=== PATIENT | female | born 1990 | race Caucasian/White ===

== ENCOUNTER 2017-06-26 09:00 | Outpatient (RCR) | payer MEDICAID, SELFPAY ==
[2017-06-24 01:39] VITALS: BP 108/66; PULSE 84; RESP 14; TEMP 36.8
--- NOTE | 2017-06-26 11:09 | BH.SGPN ---
Service Group Progress Note - Session Psychotherapy Session #1 Date Open:: 18 - 5 group members Time Started:: 09:03 Time Stopped:: 10:00 Targeted Problem #:: 1 Type of Group:: Process Goal of Group:: The goal of today's group was to check-in with client's mood, stressors, and positives and introduce topic for the day. Client Response/Progress/Benefit:: Client responded well to session, active participant. Client reports feeling anxious today about driving and about returning to work tomorrow after an extended period off. Client shared overall she is starting to notice improvements in her mood and a reduction of symptoms. Client reported she sat through a full day of basketball without freaking out in the crowds which client recognized as progress. Client stated she has been working on communicating her emotions more and using social supports. Client shared I used to want to isolate and not be around people but now I'm getting out. Client appears to be increasing comfort with IOP as evidenced by her report of client telling her parents about the benefits of counseling and encouraged them not to be afraid to speak. Client appeared to benefit from reflecting on the progress she has made with reducing symptoms and generalizing coping skills. Client progressing as evidenced by her report of reduced intensity of symptoms, but continues to endorse rumination and negative thoughts. Eye Contact:: Good Motor Activity:: Appropriate Appearance:: Neat Speech:: Other - circumstantial Mood:: Euthymic Affect:: Congruent Thoughts:: Linear, No evidence of hallucinations/delusions noted Staff Interventions:: Therapist used open-ended questions to elicit information about client's current stressors and mood state. Therapist was supportive by using active listening and reflection. Therapist facilitated a mindfulness activity to promote emotional well-being and calmness.
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
--- NOTE | 2017-06-28 12:39 | BH.SGPN ---
Service Group Progress Note - Session Psychotherapy Session #1 Date Open:: 06/28/17 Time Started:: 09:08 Time Stopped:: 10:16 Targeted Problem #:: 1 Type of Group:: Process - 7 Participants Goal of Group:: The goal of today's group was to check-in with client's mood, stressors, and positives, review homework, and to introduce the topic of the day. Client Response/Progress/Benefit:: Client entered session alert and attentive. Clients hared how she has been feeling like a, negative Jessica but Im feeling a little better today. She reported having spoken with her work about her issues there and stated that he sister said she was indecisive and scatter brained. Client was concerned about this because she reported, my friends and family all say it but I just dont know. Therapist discussed reasons for feeling scatter brained and after discussion client was receptive and understanding. Client identify one positive thing she will do for herself as taking 3 minutes alone for herself. Client benefitted from group in identifying why she may feel indecisive at times. Progress noted in clients ability to speak co-workers and family about how she is feelings. Continued treatment necessary to manage emotional regulation. Eye Contact:: Good Motor Activity:: Appropriate Appearance:: Casual Speech:: Appropriate Mood:: Euthymic Affect:: Full Thoughts:: Linear, Logical, No evidence of hallucinations/delusions noted Staff Interventions:: Therapist used open-ended questions to elicit information about client's current stressors and mood. Therapist was supportive by using active listening and reflection. Psychotherapy Session #2 Date Open:: 06/28/17 Time Started:: 10:20 Time Stopped:: 11:15 Targeted Problem #:: 1 Type of Group:: Illness Management - 7 Participants Goal of Group:: To identify within self what is keeping client trapped from achieving better quality of life. Client Response/Progress/Benefit:: Client was alert and attentive in group AEB nodding in agreement with peers. Client appeared distant throughout group but with encouragement from therapist engaged in communication with peers. Client participated in group discussion with peers about what negative thoughts she feels are keeping her stuck in her current position. Client reported that her self-esteem is causing her to be stuck as well as, feeling sorry for myself, my phobia of driving, wanting a different job, and being stuck in the house. Client identified barriers to from changing these thoughts as, not understanding my anxiety, fear and being scared of it. Client appeared to benefit from gaining awareness on how her thoughts affect her behavior and in turn increase symptoms of anxiety. Progress noted at clients ability to identify thoughts keeping her stuck and identify ways to challenge them. Continued treatment necessary to challenge negative thoughts and decrease anxiety levels. Eye Contact:: Good Motor Activity:: Appropriate Appearance:: Casual Speech:: Appropriate Mood:: Euthymic Affect:: Full Thoughts:: Linear, Logical, No evidence of hallucinations/delusions noted Staff Interventions:: Therapist facilitated discussion about what is keeping clients stuck from moving toward mental wellness. Therapist assisted clients in connecting how thoughts can contribute to keeping clients stuck. Therapist led discussion about barriers clients face from making changes to help one move forward. Therapist provided support by using active listening and giving feedback to others.
--- NOTE | 2017-06-28 14:17 | BH.SGPN_ITS ---
Service Group Progress Note - Session Psychotherapy Session #3 Date Open:: 06/28/17 - 7 group members Time Started:: 11:30 Time Stopped:: 12:20 Targeted Problem #:: 1 Type of Group:: Functional Skills Development Goal of Group:: To identify what client can do to release self from those things that are trapping them to find more peace and quality in everyday life. Client Response/Progress/Benefit:: Client responded well to session, active participant. Client reported negative thinking impacts client?s mood and keeps client from driving, expressing needs, and doing what she enjoys. Client identified a negative thought keeping client stuck to be I can't drive because I'll get in an accident. Client shared this thought is realistic because it's possible but it is unrealistic as client catastrophizes and jumps to conclusions which increases anxiety and reinforces unhelpful coping skills such as avoidance. Client created an alternative thought of I can drive with the help of my supports. Client stated when she challenges her negative thoughts it increases her confidence. Client appeared to benefit from challenging negative thinking and increasing awareness of how thoughts can keep client stuck in an unhelpful maintenance cycle. Client seems to be progressing with utilizing healthy coping skills as shown by her report of using supports. Eye Contact:: Good Motor Activity:: Appropriate Appearance:: Casual Speech:: Tangential Mood:: Anxious Affect:: Full Thoughts:: Linear, No evidence of hallucinations/delusions noted Staff Interventions:: Therapist used examples of maintenance cycles to help clients gain awareness of how negative thinking is keeping clients stuck. Therapist facilitated discussion about different strategies for challenging negative thoughts, assisting clients in connecting how the strategies could benefit them. Therapist provided clients with homework to focus on one thing that is keeping them stuck and identify small steps to start moving towards mental wellness.
--- NOTE | 2017-07-03 09:57 | BH.SGPN ---
Service Group Progress Note - Session Psychotherapy Session #1 Date Open:: 06/06/17 Time Started:: 09:12 Time Stopped:: 10:00 Targeted Problem #:: 1 Type of Group:: Process - 5 participants
--- NOTE | 2017-07-03 11:02 | BH.SGPN ---
Service Group Progress Note - Session Psychotherapy Session #2 Date Open:: 07/03/17 Time Started:: 10:11 Time Stopped:: 11:08 Targeted Problem #:: 1 Type of Group:: Illness Management - 4 participants Psychotherapy Session #3 Date Open:: 07/03/17 Time Started:: 11:16 Time Stopped:: 12:12 Targeted Problem #:: 1 Type of Group:: Functional Skills Development - 4 participants
--- NOTE | 2017-07-03 13:30 | BH.MDN ---
Multi-Disciplinary Note - Note Family Time Started:: 12:15 Date: 07/03/17 Purpose of session/treatment goals addressed:: The purpose of this session was to incorporate client's support system into the treatment process by providing mental health education, addressing concerns, and practicing effective communication. Another goal was to help client and her parents gain awareness of warning signs, healthy coping skills, and realistic expectations for progress. Eye Contact:: Fair, Other - Client seemed to be avoiding eye contact with father as evidenced by her turned away body posture. Motor Activity:: Slowed Appearance:: Casual Speech:: Tangential Mood:: Anxious Affect:: Congruent - Client became tearful while talking about her symptoms and triggers Thoughts:: Linear, No evidence of hallucinations/delusions noted Staff Interventions:: Therapist used open-ended questions to explore client's current stressors, functioning, coping skills, and symptoms. Therapist provided mental health education to client and her parents. Therapist assisted client's supports in identifying helpful and unhelpful strategies to help client cope with mental health. Therapist encouraged the use of open communication and answered questions about the treatment process. Therapist used strengths perspective to empower client and parents and helped the family set realistic expectations. Client Response:: Client open to having a family session with therapist. Client reported she continues to be concerned with her driving anxiety. Client stated, is this going to be how my life is forever? Client was receptive to emotional validation and statement of adjusting expectations given by therapist. Client recognized that her negative thinking exacerbates clients driving anxiety. Client identified coping skills to utilize before and during driving to reduce anxiety such as deep breathing and challenging negative thoughts. Client shared she has seen progress so far in gaining awareness, increasing healthy coping skills, and reducing negative coping skills such as isolation. Client reports this leads client to believe she will continue to progress with driving as well. Client stated she has been feeling increased fatigue which client contributes to medication. Client would like therapist to address this concern with AC. Client brought up concerns with parents such as feeling guilty about asking for help and not being able to do the things she used to be able to do. Client shared it is hard for her to adjust her expectations which consequently increases clients impatience and low self-esteem. Client's mother shared she understands where client is coming from, but wants client to know it is okay to ask for help. Client reported she wants to continue taking small steps, even though she feels impatient at times. Clients mother reported she is proud of client for sticking with the group and not giving up. Clients mother also shared she has seen improvement in clients functioning and mood as well as reduced paranoid thoughts. Client's mother stated her , client's father, does not understand mental health which makes it difficult at times for client to feel supported. The family was receptive to utilizing more effective communication of mental health and support needs as well as focusing on realistic expectations. Clients parents were provided with information on depression and anxiety as well as resources for family to family at [facility]. Client stated she would like to continue with individual outpatient counseling when client discharges from [facility]. Risks/Concerns:: Client denies suicidal ideation, plan, and intent as of 07/03/17. Client reports a positive outlook about getting better which demonstrates future orientation. Client has strong family support. Progress Toward Goals/Plan:: Client appears to be showing progress toward treatment goals as evidenced by client's report of reduced depressive symptoms. Client's mother shared she has seen an improvement in client's mood and overall functioning. Client continues to experience anxiety that impedes client's driving. Client to continue IOP to promote gains, continue learning and implementing healthy coping skills, and promote mood stability. Therapist to follow up with AC regarding client's reports of increased fatigue. Time Stopped:: 13:08
--- NOTE | 2017-07-03 13:33 | BH.MDN_ITS ---
Multi-Disciplinary Note - Note Family Time Started:: 12:15 Date: 07/03/17 Purpose of session/treatment goals addressed:: The purpose of this session was to incorporate client's support system into the treatment process by providing mental health education, addressing concerns, and practicing effective communication. Another goal was to help client and her parents gain awareness of warning signs, healthy coping skills, and realistic expectations for progress. Eye Contact:: Fair, Other - Client seemed to be avoiding eye contact with father as evidenced by her turned away body posture. Motor Activity:: Slowed Appearance:: Casual Speech:: Tangential Mood:: Anxious Affect:: Congruent - Client became tearful while talking about her symptoms and triggers Thoughts:: Linear, No evidence of hallucinations/delusions noted Staff Interventions:: Therapist used open-ended questions to explore client's current stressors, functioning, coping skills, and symptoms. Therapist provided mental health education to client and her parents. Therapist assisted client's supports in identifying helpful and unhelpful strategies to help client cope with mental health. Therapist encouraged the use of open communication and answered questions about the treatment process. Therapist used strengths perspective to empower client and parents and helped the family set realistic expectations. Client Response:: Client open to having a family session with therapist. Client reported she continues to be concerned with her driving anxiety. Client stated, is this going to be how my life is forever? Client was receptive to emotional validation and statement of adjusting expectations given by therapist. Client recognized that her negative thinking exacerbates client?s driving anxiety. Client identified coping skills to utilize before and during driving to reduce anxiety such as deep breathing and challenging negative thoughts. Client shared she has seen progress so far in gaining awareness, increasing healthy coping skills, and reducing negative coping skills such as isolation. Client reports this leads client to believe she will continue to progress with driving as well. Client stated she has been feeling increased fatigue which client contributes to medication. Client would like therapist to address this concern with AC. Client brought up concerns with parents such as feeling guilty about asking for help and not being able to do the things she used to be able to do. Client shared it is hard for her to adjust her expectations which consequently increases client?s impatience and low self-esteem. Client's mother shared she understands where client is coming from, but wants client to know it is okay to ask for help. Client reported she wants to continue taking small steps, even though she feels impatient at times. Client?s mother reported she is proud of client for ?sticking with the group and not giving up.? Client?s mother also shared she has seen improvement in client?s functioning and mood as well as reduced paranoid thoughts. Client's mother stated her , client's father, does not understand mental health which makes it difficult at times for client to feel supported. The family was receptive to utilizing more effective communication of mental health and support needs as well as focusing on realistic expectations. Client?s parents were provided with information on depression and anxiety as well as resources for family to family at [facility]. Client stated she would like to continue with individual outpatient counseling when client discharges from [facility]. Risks/Concerns:: Client denies suicidal ideation, plan, and intent as of . Client reports a positive outlook about getting better which demonstrates future orientation. Client has strong family support. Progress Toward Goals/Plan:: Client appears to be showing progress toward treatment goals as evidenced by client's report of reduced depressive symptoms. Client's mother shared she has seen an improvement in client's mood and overall functioning. Client continues to experience anxiety that impedes client's driving. Client to continue IOP to promote gains, continue learning and implementing healthy coping skills, and promote mood stability. Therapist to follow up with AC regarding client's reports of increased fatigue. Time Stopped:: 13:08
--- NOTE | 2017-07-03 15:02 | BH.SGPN ---
Service Group Progress Note - Session Psychotherapy Session #1 Date Open:: 07/03/17 Time Started:: 09:03 Time Stopped:: 09:55 Targeted Problem #:: 1 Type of Group:: Process Goal of Group:: The goal of today's group was to check-in with client's mood, stressors, and positives, review homework and introduce topic for the day. Client Response/Progress/Benefit:: Client reported yesterday she went to the doctor's and was diagnosed with bronchitis. She expressed some concerns about her medication and perhaps making her more tired but recognizes it could also be her sleep apnea that is the cause. Client initially struggled with being able to share about her weekend because she reported her memory is very bad. After some time client was able to remember she worked over the weekend and it went more smoothly than her first day back. Client shared still having anxiety when she has to work with a certain coworker because the coworker tends to be rude and disrespectful. Client reported feeling excited that she is going to get her hair colored today. Client seemed to benefit from expressing thoughts and feelings as well as support from peers. Client demonstrating progress as evidenced by client opening up to group about her thoughts and feelings as well as starting to utilize her healthy coping skills. Eye Contact:: Fair Motor Activity:: Restless Appearance:: Casual Speech:: Appropriate Mood:: Anxious Affect:: Congruent Thoughts:: Linear, Logical, No evidence of hallucinations/delusions noted Staff Interventions:: Therapist used open-ended questions to elicit information about client's current stressors and mood state. Therapist was supportive by using active listening and reflection.
--- NOTE | 2017-07-08 09:12 | BH.COMM ---
Communication Note - Communication with Client Communication Note: This therapist checked in with this morning as client reported having anxiety regarding driving in the snow. Therapist used a calming voice and reminded client of healthy coping skills to reduce client anxiety. Client reported belief group may help reduce anxiety and refocus. Therapist provided emotional support and encouraged client to make a decision based on her mental health needs.
--- NOTE | 2017-07-08 12:54 | BH.MDN_ITS ---
Multi-Disciplinary Note - Note 30-min Individual Time Started:: 12:12 Date: 07/08/17 Purpose of session/treatment goals addressed:: The purpose of this session was address client's current symptoms and stressors as client appeared withdrawn from group members and was tearful during group. Another goal was to utilize calming coping skills to reduce anxiety to help client drive home safely. Eye Contact:: Avoidant Motor Activity:: Slowed Appearance:: Neat Speech:: Soft Mood:: Dysthymic Affect:: Flat - Client tearful throughout session Thoughts:: Other - Thought blocking, No evidence of hallucinations/delusions noted Staff Interventions:: Therapist used open-ended questions and active listening to explore client's mood, stressors, and functioning. Therapist provided emotional support and validation. Therapist used CBT strategies to help client gain awareness of anxiety leading to avoidance. Therapist reinforced calming coping skills that have helped client in the past and used strengths perspective to reflect on client's progress in IOP so far to empower client. Therapist encouraged client to communicate to supports as client reported this as helpful in the past. Client Response:: Client somewhat hesitant to meet with therapist as client shared I'll be fine. With therapist elicitation, client acknowledged the benefits to reducing anxiety before driving home. Client stated she felt highly anxious this morning as it started snowing and client became fearful that she would get in an accident while driving. Client stated she wanted to leave group right after getting to IOP, but talked herself into staying. Client able to see this as progress. Client became tearful and expressed am I going to be like this forever? Client asked if she could take an additional medication to reduce driving anxiety, therapist will follow up with AC. Client shared she feels guilty for cancelling last week due to weather and reported I should have come it wasn't bad. Client explored the cognitive distortion behind this thought and how it impacted client's mood. 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 Client identified calming coping skills she can utilize before and during driving such as calling a friend, breathing, and using the 5-senses. Client reported she can also focus on the excitement she feels about seeing her children as a coping skills to reduce anxiety while driving today. Client agreed to call her friend for support today to manage depressive symptoms. Client stated she would like talk with her mother more about mental health, but client states her mother ?doesn?t know how to open up. ? Client receptive to expressing these concerns with her mother. Client reported she wants to see more progress with driving which causes client to feel defeated. However, client acknowledged she has made progress in increasing communication and challenging urges to avoid due to anxiety. Client was receptive to learning about avoidance patterns and working on desensitization techniques in future sessions. Risks/Concerns:: Client denies suicidal ideation, plan, and intent as of . Client reported she is looking forward to spending the day with her girls which demonstrates future orientation. Progress Toward Goals/Plan:: Client showing progress toward treatment goals as evidenced by client staying at IOP and meeting with individual therapist today despite reporting high anxiety and depressive symptoms which in the past caused client to isolate and avoid. Client continues to report severe driving anxiety which contributes to client's depressive symptoms and low self-esteem. Client to continue IOP to promote mood stability and to increase coping skills to reduce negative thinking and anxiety. Client to schedule an appointment with outpatient counseling this week. Time Stopped:: 12:34
--- NOTE | 2017-07-08 13:42 | BH.SGPN_ITS ---
Service Group Progress Note - Session Psychotherapy Session #2 Date Open:: 07/08/17 - 5 group members Time Started:: 10:10 Time Stopped:: 11:03 Targeted Problem #:: 1 Type of Group:: Illness Management Goal of Group:: The goal of group was to increase understanding of goals and goal setting and practice a method of goal setting. Client Response/Progress/Benefit:: Client responded well to session, quiet during discussion, but taking on a leadership role in activity. Client reported it is important to set realistic goals to help improve confidence and avoid setting oneself up for failure. Client shared in the activity she became frustrated with herself for messing up, but client reported she challenged her urge to quit and participated anyway. Client appeared to benefit from increasing awareness of goal setting as well as practicing in the moment coping skills. Client progressing as shown by her report of participating in the activity despite having negative thoughts. Client can continue to benefit from challenging cognitive distortions that contribute to low self-esteem. Eye Contact:: Fair Motor Activity:: Slowed Appearance:: Neat Speech:: Appropriate Mood:: Anxious Affect:: Full Thoughts:: Linear, No evidence of hallucinations/delusions noted Staff Interventions:: Therapist facilitated group discussion about goals and goal setting. Therapist taught group the acronym SMART (Specific, Measurable, Achievable, Relevant, Timely) as a tool to help with goal setting. Therapist led the group in an activity to be used as a method of practicing goal setting. Therapist provided the group with a small beach ball and explained their goal was to keep the ball in the air for as long as possible. Therapist guided the group through the SMART acronym as group was participating in activity. Psychotherapy Session #3 Date Open:: 07/08/17 - 5 group members Time Started:: 11:10 Time Stopped:: 12:10 Targeted Problem #:: 1 Type of Group:: Functional Skills Development Goal of Group:: The goal of group was to identify a goal for the week, explore the potential barriers to achieving that set goal, and identify strategies to overcome barriers. Client Response/Progress/Benefit:: Client responded somewhat well to session, withdrawn, but participating when prompted by therapist. Client reported she feels depressed today which is impacting client's communication as client stated , I don't want to share because I don't want to be judged. Client shared she was having a difficult time identifying a goal for the week, so client set a goal for today. Client identified reaching out to one support today as her goal. Client shared this will help reduce depressive symptoms. Client identified her barriers as being a burden and negative thinking. Client shared she can remind herself of past times her supports helped her to overcome barriers. Client appeared to benefit from creating a small, realistic goal to manage depressive symptoms today. Client progressing with communicating instead of withdrawing, but can continue to benefit from utilizing internal coping skills. Eye Contact:: Poor Motor Activity:: Slowed Appearance:: Neat Speech:: Soft Mood:: Dysthymic Affect:: Flat Thoughts:: Linear, No evidence of hallucinations/delusions noted Staff Interventions:: Therapist explained goal setting activity to group. Therapist provided each group member with a piece of paper and asked them to write down a goal they would like to accomplish over the weekend. Therapist then asked each member to draw a path to their goal and identify barriers that could potentially get in the way of their goal. Therapist led group in processing their goal maps and had them come up with strategies to overcome the barriers. Therapist provided support by using reflective listening.
--- NOTE | 2017-07-08 14:24 | BH.SGPN ---
Service Group Progress Note - Session Psychotherapy Session #1 Date Open:: 07/08/17 Time Started:: 09:07 Time Stopped:: 10:01 Targeted Problem #:: 1 Type of Group:: Process - 5 participants
--- NOTE | 2017-07-10 14:12 | BH.SGPN ---
Service Group Progress Note - Session Psychotherapy Session #2 Date Open:: 07/10/17 group members Time Started:: 10:20 Time Stopped:: 11:15 Targeted Problem #:: 1 Type of Group:: Illness Management Goal of Group:: To increase understanding of resilience and identify the factors that contribute to building resilience. Client Response/Progress/Benefit:: Client responded well to session, active participant. Client processed the quote with peers and nodded in agreement that one must be flexible to change in order to manage change effectively. Client helped the group identify factors of resiliency such as hope and optimism and accepting change is a part of life. Client shared she is currently having a hard time coping with her living situation, which is making it hard for client to focus on resiliency. Client received supportive statements from peers and reported she can focus on the positives. Client appeared to benefit from increasing her awareness of the resiliency factors. Client progressing as shown by her increased engagement and communication during group, but can continue to improve communication during times of high anxiety. Eye Contact:: Good Motor Activity:: Appropriate Appearance:: Neat Speech:: Soft Mood:: Anxious Affect:: Congruent Thoughts:: Linear, No evidence of hallucinations/delusions noted Staff Interventions:: Therapist led group in an activity that would induce a chaotic environment and used the activity as a tool in discussing the various stressors people are faced with each day. Therapist facilitated group discussion about resilience and explained the factors of building resilience. Therapist led discussion about factors that contribute to resilience. Therapist provided support by using active listening and providing feedback. Psychotherapy Session #3 Date Open:: 07/10/17 group members Time Started:: 11:21 Time Stopped:: 12:11 Targeted Problem #:: 1 Type of Group:: Functional Skills Development Goal of Group:: To rehearse resilient factors and identify ways to maintain resilience despite hardships and stressors. Client Response/Progress/Benefit:: Client responded somewhat well to session, participating in the activity, but appeared withdrawn during discussion. Client became tearful and declined to participate in discussion. Client wrote personal resiliency factors on her stress ball, identifying coming to IOP as one of her reminders to remain resilient despite hardship. Client appeared to benefit from receiving emotional support from peers and engaging in an activity aimed at increasing resiliency. Client appears to be progressing with gaining awareness of triggers, but continues to struggle with coping with stressors out of her control. Eye Contact:: Poor Motor Activity:: Restless Appearance:: Neat Speech:: Soft Mood:: Anxious, Dysthymic Affect:: Congruent - Client became tearful during session. Thoughts:: Linear, No evidence of hallucinations/delusions noted Staff Interventions:: Therapist led group in an activity in which group members were challenged to stay resilient despite various stressors and hardships added to activity. Therapist provided each group member with a stress ball and used stress ball as a tool to discuss factors of resilient personality. Therapist provided group members with a handout about the building blocks of resilience. Therapist provided support by using reflective listening.
--- NOTE | 2017-07-10 14:14 | BH.MDN ---
Multi-Disciplinary Note - Note 60-min Individual Time Started:: 12:18 Date: 07/10/17 Purpose of session/treatment goals addressed:: The purpose of this session was to discuss aftercare options and schedule outpatient counseling appointments. Another goal was to identify and reframe cognitive distortions. Other topics included goal setting and communication. Eye Contact:: Fair Motor Activity:: Appropriate Appearance:: Neat Speech:: Tangential Mood:: Anxious, Other - reporting frustration Affect:: Congruent Thoughts:: Linear - thoughts linear, client reported feeling tired and having a hard time concentrating., No evidence of hallucinations/delusions noted Staff Interventions:: Therapist used open-ended questions to gather information on clients current symptoms, coping skills, and thoughts on discharge. Therapist advocated for client by assisting client in scheduling outpatient services. Therapist reviewed cognitive distortions with client and helped client challenge negative thought patterns contributing to depression and anxiety. Therapist used motivational interviewing to promote change talk and empower client to set weekly goals to increase communication and problem-solving. Client Response:: Client was open to meeting with therapist. Client stated she became tearful during group today as client received an upsetting text message from her father. Client shared she continues to feel lack of mental health support and communication from her father. Client stated she would like to move out of her parents house and become more independent, but reported belief her father does not think she can handle it. Client was receptive to problem-solving solutions with therapist and agreed to talk with her mother about options. Client reported she continues to feel anxious about driving, but with the help of client's coping skills such as deep breathing and healthy distractions she has been seeing improvement. Client shared her depressed mood has improved as well although client continues to have negative thinking and shuts down at times. Client responded well to a discussion on cognitive distortions and how they can keep client stuck. Client identified a current negative thoughts and practiced reframing it into a more realistic thought. Client and therapist contacted [facility] to schedule an appointment for client to follow up with psychiatry. Client also agreed to contact [facility] to schedule an intake for outpatient counseling. Client reports she feels comfortable with her last day being 07/17/17. Risks/Concerns:: Client denies suicidal ideation, plan, and intent as of 07/10/17. Client reports no current risks or concerns. Progress Toward Goals/Plan:: Client showing progress towards treatment goals as client reports utilizing calming coping skills and success with returning to work. However, client continues to report difficulty communicating with and feeling supported by her father which exacerbates mental health symptoms. Client demonstrating progress with challenging negative thoughts and reducing avoidance behaviors brought on by anxiety as shown by client's increased driving to group. Client to continue IOP to promote gains and reaffirm healthy coping skills. Client to follow up with [facility] to schedule outpatient counseling and to attend an intake appointment at [facility] on 07/18/17 to establish psychiatry. Time Stopped:: 13:13
--- NOTE | 2017-07-10 16:11 | BH.SGPN ---
Service Group Progress Note - Session Psychotherapy Session #1 Date Open:: 07/10/17 Time Started:: 09:09 Time Stopped:: 10:15 Targeted Problem #:: 1 Type of Group:: Process - 10 participants
--- NOTE | 2017-07-11 14:55 | BH.COMM ---
Communication Note - Communication with Client Communication Note: This therapist attempted to contact client to follow up on scheduling for outpatient services. Therapist was unable to reach client and left a message asking for client to return the call.
--- NOTE | 2017-07-16 12:41 | BH.SGPN_ITS ---
Service Group Progress Note - Session Psychotherapy Session #1 Date Open:: 06/28/17 Time Started:: 09:08 Time Stopped:: 10:16 Targeted Problem #:: 1 Type of Group:: Process - 7 Participants Goal of Group:: The goal of today's group was to check-in with client's mood, stressors, and positives, review homework, and to introduce the topic of the day. Client Response/Progress/Benefit:: Client entered session alert and attentive. Clients hared how she has been feeling like a, ?negative Jessica but I?m feeling a little better today.? She reported having spoken with her work about her issues there and stated that he sister said she was indecisive and scatter brained. Client was concerned about this because she reported, ?my friends and family all say it but I just don?t know.? Therapist discussed reasons for feeling scatter brained and after discussion client was receptive and understanding. Client identify one positive thing she will do for herself as taking 3 minutes alone for herself. Client benefitted from group in identifying why she may feel indecisive at times. Progress noted in client?s ability to speak co-workers and family about how she is feelings. Continued treatment necessary to manage emotional regulation. Eye Contact:: Good Motor Activity:: Appropriate Appearance:: Casual Speech:: Appropriate Mood:: Euthymic Affect:: Full Thoughts:: Linear, Logical, No evidence of hallucinations/delusions noted Staff Interventions:: Therapist used open-ended questions to elicit information about client's current stressors and mood. Therapist was supportive by using active listening and reflection. Psychotherapy Session #2 Date Open:: 06/28/17 Time Started:: 10:20 Time Stopped:: 11:15 Targeted Problem #:: 1 Type of Group:: Illness Management - 7 Participants Goal of Group:: To identify within self what is keeping client trapped from achieving better quality of life. Client Response/Progress/Benefit:: Client was alert and attentive in group AEB nodding in agreement with peers. Client appeared distant throughout group but with encouragement from therapist engaged in communication with peers. Client participated in group discussion with peers about what negative thoughts she feels are keeping her stuck in her current position. Client reported that her self-esteem is causing her to be stuck as well as, ?feeling sorry for myself, my phobia of driving, wanting a different job, and being stuck in the house.? Client identified barriers to from changing these thoughts as, ?not understanding my anxiety, fear and being scared of it.? Client appeared to benefit from gaining awareness on how her thoughts affect her behavior and in turn increase symptoms of anxiety. Progress noted at client?s ability to identify thoughts keeping her stuck and identify ways to challenge them. Continued treatment necessary to challenge negative thoughts and decrease anxiety levels. Eye Contact:: Good Motor Activity:: Appropriate Appearance:: Casual Speech:: Appropriate Mood:: Euthymic Affect:: Full Thoughts:: Linear, Logical, No evidence of hallucinations/delusions noted Staff Interventions:: Therapist facilitated discussion about what is keeping client?s stuck from moving toward mental wellness. Therapist assisted clients in connecting how thoughts can contribute to keeping clients stuck. Therapist led discussion about barriers clients face from making changes to help one move forward. Therapist provided support by using active listening and giving feedback to others.
--- NOTE | 2017-07-17 10:41 | BH.AFTERPLAN ---
Aftercare Plan - Demographics Treatment End Date:: 07/17/17 Psychiatrist:: Milvia Moreno Psychiatrist Office #:: [id number] [facility] Therapist:: Maryse Gonsalves Therapist Phone #:: [phone] - Medications Home Medications: Home Medications Ergocalciferol [Vitamin D] 1 tab PO QWEEK 06/01/17 Omeprazole [Omeprazole] 40 mg PO DAILY 06/01/17 Sertraline HCl [Zoloft] 100 mg PO DAILY 06/01/17 Aripiprazole [Abilify] 2 mg PO DAILY 06/21/17 - Plan Details Progress/Aftercare Plan Details:: Client has demonstrated progress with identifying and communicating her emotions more regularly both in IOP and with positive supports. Client shared she is not where she would like to be yet, but she has seen improvement in reduced depressive symptoms. Client reports she has increased awareness of warning signs and healthy coping skills to regulate emotions. Client reports utilizing healthy coping skills such as talking to her supports, challenging negative thoughts, breathing, and setting small goals. Client continues to have driving anxiety, but has been challenging her negative thoughts which is reducing client's avoidant behaviors. Client plans to follow up with outpatient counseling to continue progress with managing anxiety and fear. Strategies for Success:: 1. set small goals! Focus on one thing at a time! 2. Reach out and communicate with supports! Even when you don't feel like it. 3. BREATHE! 4. Take breaks! 5. Know your warning signs and limits! 6. SELF-CARE! You can't pour from an empty cup. 7. Use humor! 8. Challenge negative thoughts would I say this to my daughters? 9. Focus on what you've progressed on so far and give yourself some credit. - Appointments Appointments/Referrals to Other Services:: Client encouraged to follow up with psychiatry at [facility], her appointment is on 07/18/17. Client encouraged to follow up with outpatient counseling at [facility]. Client to call this therapist this week to verify an intake time and date. Client to follow up with primary care physician Izzy Hernadez within the next month for regular medical check-ups.
--- NOTE | 2017-07-17 10:44 | BH.IGGP_ITS ---
Aftercare Plan - Demographics Treatment End Date:: 07/17/17 Psychiatrist:: Milvia Moreno Psychiatrist Office #:: [phone] [facility] Therapist:: Maryse Gonsalves Therapist Phone #:: [phone] - Medications Home Medications: Home Medications Ergocalciferol [Vitamin D] 1 tab PO QWEEK 06/01/17 Omeprazole [Omeprazole] 40 mg PO DAILY 06/01/17 Sertraline HCl [Zoloft] 100 mg PO DAILY 06/01/17 Aripiprazole [Abilify] 2 mg PO DAILY 06/21/17 - Plan Details Progress/Aftercare Plan Details:: Client has demonstrated progress with identifying and communicating her emotions more regularly both in IOP and with positive supports. Client shared she is not where she would like to be yet, but she has seen improvement in reduced depressive symptoms. Client reports she has increased awareness of warning signs and healthy coping skills to regulate emotions. Client reports utilizing healthy coping skills such as talking to her supports, challenging negative thoughts, breathing, and setting small goals. Client continues to have driving anxiety, but has been challenging her negative thoughts which is reducing client's avoidant behaviors. Client plans to follow up with outpatient counseling to continue progress with managing anxiety and fear. Strategies for Success:: 1. set small goals! Focus on one thing at a time! 2. Reach out and communicate with supports! Even when you don't feel like it. 3. BREATHE! 4. Take breaks! 5. Know your warning signs and limits! 6. SELF-CARE! You can't pour from an empty cup. 7. Use humor! 8. Challenge negative thoughts would I say this to my daughters? 9. Focus on what you've progressed on so far and give yourself some credit. - Appointments Appointments/Referrals to Other Services:: Client encouraged to follow up with psychiatry at [facility], her appointment is on 07/18/17. Client encouraged to follow up with outpatient counseling at [facility]. Client to call this therapist this week to verify an intake time and date. Client to follow up with primary care physician Izzy Hernadez within the next month for regular medical check-ups.
--- NOTE | 2017-07-17 10:44 | BH.DS ---
Discharge Summary - Demographics Date of Admission:: 06/06/17 Discharge Date: 07/17/17 Presenting Problems at Admission:: Client is 27-year-old female who at admission presented with a history of depression and anxiety. Client evaluated at [place] [facility] June 01, 2017 for depression and change of mental status. Client endorsed depressive symptoms that client reports have been increasing in severity since summer due to multiple stressors. Client presented with ruminative anxiety that was psychotic in nature which impacted client ability to work, drive, and function at her baseline. Clients mother reported client would often say things that werent real and have paranoid thoughts about everything. At admission client endorsed depressed mood with isolative behavior, anhedonia, decreased energy, thought blocking, and difficulty concentrating. Additionally, client reported having frequent panic attacks while driving. Discharge Diagnoses:: Major depressive disorder with psychotic features F 32.3 Reason for Discharge:: Client has accomplished her [facility] treatment goals as client reports reduced depression and anxiety symptoms as well as increased emotional regulation. Additionally, client plans to return to work without restrictions and no longer meets the criteria for [facility] level of care. - Treatment Progress During Treatment & Response: Client has demonstrated progress with reducing depressive symptoms, anhedonia, and isolative behaviors. At discharge client reported reduced psychosis and paranoid thoughts. Client has been able to return to work and function more regularly at her baseline. Client also has progressed with utilizing healthy coping skills such as thought challenge, deep breathing, and goal setting. Client continued to have high anxiety about driving throughout [facility], but showed progress as client was driving herself to [facility] with reduced panic symptoms in her last few weeks. Client has increased her communication with supports and her willingness talk about mental health issues. Overall, client responded well to group and individual sessions as evidenced by her increased participation and insight. Client had good attendance and was receptive to communicating concerns with individual therapist when in the past client reported I didn't open up well. Issues Still to be Addressed:: Client can benefit from continued work on challenging negative thinking, goal setting, communication, and self-care. Client can also continue to benefit from continued use of healthy coping skills learning in individual and group counseling to improve mood stability and reduce mental health symptoms. Client can benefit from continued communication, psychoeducation, and boundary setting with her father as client reports their relationship is an ongoing stressor. Client reported at discharge she would like to continue to work on reducing anxiety and fear of driving. Client could benefit from desensitization and CBT techniques to reduce anxiety symptoms and increase functioning. Client was encouraged to communicate these concerns with outpatient therapist. Lastly, client can benefit from setting small goals to manage stress and increase self-esteem. Discharge Recommendations/Instructions:: Client was recommended to follow up with outpatient psychiatry and counseling. Client reports plans to go to [facility] for psychiatry, client's appointment is 07/18/17. Client plans to seek outpatient treatment at [facility]. Client unable to schedule a session before leaving [facility], but reports intent to call [facility] this week and follow up with [facility] therapist. Client recommended to follow up with PCP for ongoing medical care and montioring of sleep issues. Discharge Handout: Complete Discharge Handout with client on aftercare options and continuity of care.
--- NOTE | 2017-07-17 14:13 | BH.SGPN ---
Service Group Progress Note - Session Psychotherapy Session #2 Date Open:: 07/17/17 Time Started:: 10:15 Time Stopped:: 11:07 Targeted Problem #:: 1 Type of Group:: Illness Management Goal of Group:: To increase understanding how positive and negative forces in life can impact balance in life. Client Response/Progress/Benefit:: Client listened attentively to others and contributed positively discussion. Client connected with others comments about the importance of putting forth effort to make changes because one is not distended wake up feeling better. During activity client worked cooperatively with others and verbalized her thoughts and ideas when brainstorming what can help the group be successful. When processing activity client recognizes the importance of utilizing supports and having balance was important in helping the group be successful. Connected these same skills can be helpful in everyday life with bouncing both positive and negative forces. Seemed to benefit from increasing awareness of how positive forces can impact progress. Eye Contact:: Good Motor Activity:: Appropriate Appearance:: Casual Speech:: Appropriate Mood:: Euthymic, Anxious Affect:: Congruent Thoughts:: Linear, Logical, No evidence of hallucinations/delusions noted Staff Interventions:: Therapist facilitated group discussion about the various forces of life and helped clients connect the impact they have on balance in life. Therapist led group in an experiential activity in which group members had to work together to balance an object and move it to a designated location. Therapist utilized the activity as a tool to process the challenges connected with balancing various forces.
--- NOTE | 2017-07-17 14:43 | BH.MDN ---
Multi-Disciplinary Note - Note 30-min Individual Time Started:: 11:30 Date: 07/17/17 Purpose of session/treatment goals addressed:: The purpose of this session was to establish an aftercare plan and identify strategies for success moving forward. Another goal was to verify client's outpatient providers and reflect on client progress. Eye Contact:: Fair Motor Activity:: Restless Appearance:: Neat Speech:: Rambling Mood:: Anxious Affect:: Congruent Thoughts:: Racing, No evidence of hallucinations/delusions noted Staff Interventions:: Therapist used open-ended questions to explore client's progress, issues to still be addressed, and strategies for success moving forward. Therapist provided emotional support and validation as client expressed sadness in leaving [facility]. Therapist helped client verify aftercare outpatient services. Therapist used strengths perspective to empower client on progress and promote self-confidence. Client Response:: Client open to meeting with therapist, reporting reluctance to leave the program as client has grown to find [facility] as a safe place. Client reported she is started to get a cold and does not feel well today, which is impacting clients mental health. Client reflected on her progress sharing she has reduced depression and increased awareness of warning signs. Client shared she is not where she wants to be but reported belief she is half way there as client is no longer isolating and being controlled by negative thinking. Client stated she wants to continue to work on managing anxiety and increasing self-esteem. Client shared challenging negative thoughts, taking breaks, and communicating with positive supports have been the most helpful coping skills. Client reported she has gone back to work and is feeling less anxiety which demonstrates progress. Client expressed gratitude towards [facility] staff and the program. Client agrees to follow up with outpatient counseling and psychiatry Risks/Concerns:: Client denies suicidal ideation, plan, and intent as of 07/17/17. Client presents with no current risks or concerns. Progress Toward Goals/Plan:: Client has achieved her treatment goals as client reports reduced depression and anxiety. Client reported having a hard time seeing her progress today as client does not feel well physically and will miss [facility]. Client stated she has seen improvements with her communication, use of healthy coping skills, and challenging negative thoughts. Client to follow up with psychiatry at [facility] and outpatient counseling at [facility]. Client asked therapist to call [facility] to find out earliest available intake dates and to help client schedule. Client to come into IOP to meet with IOP therapist on 07/31/17 for two-week follow up. Time Stopped:: 12:05
--- NOTE | 2017-07-17 14:46 | BH.MDN_ITS ---
Multi-Disciplinary Note - Note 30-min Individual Time Started:: 11:30 Date: 07/17/17 Purpose of session/treatment goals addressed:: The purpose of this session was to establish an aftercare plan and identify strategies for success moving forward. Another goal was to verify client's outpatient providers and reflect on client progress. Eye Contact:: Fair Motor Activity:: Restless Appearance:: Neat Speech:: Rambling Mood:: Anxious Affect:: Congruent Thoughts:: Racing, No evidence of hallucinations/delusions noted Staff Interventions:: Therapist used open-ended questions to explore client's progress, issues to still be addressed, and strategies for success moving forward. Therapist provided emotional support and validation as client expressed sadness in leaving [facility]. Therapist helped client verify aftercare outpatient services. Therapist used strengths perspective to empower client on progress and promote self-confidence. Client Response:: Client open to meeting with therapist, reporting reluctance to leave the program as client has grown to find [facility] as a safe place. Client reported she is started to get a cold and does not feel well today, which is impacting client?s mental health. Client reflected on her progress sharing she has reduced depression and increased awareness of warning signs. Client shared she is not where she wants to be but reported belief she is ?half way there? as client is no longer isolating and being controlled by negative thinking. Client stated she wants to continue to work on managing anxiety and increasing self- esteem. Client shared challenging negative thoughts, taking breaks, and communicating with positive supports have been the most helpful coping skills. Client reported she has gone back to work and is feeling less anxiety which demonstrates progress. Client expressed gratitude towards [facility] staff and the program. Client agrees to follow up with outpatient counseling and psychiatry Risks/Concerns:: Client denies suicidal ideation, plan, and intent as of . Client presents with no current risks or concerns. Progress Toward Goals/Plan:: Client has achieved her treatment goals as client reports reduced depression and anxiety. Client reported having a hard time seeing her progress today as client does not feel well physically and will miss [facility]. Client stated she has seen improvements with her communication, use of healthy coping skills, and challenging negative thoughts. Client to follow up with psychiatry at [facility] and outpatient counseling at [facility]. Client asked therapist to call [facility] to find out earliest available intake dates and to help client schedule. Client to come into [facility] to meet with [facility] therapist on 07/31/17 for two-week follow up. Time Stopped:: 12:05
--- NOTE | 2017-07-17 14:46 | BH.SGPN ---
Service Group Progress Note - Session Psychotherapy Session #1 Date Open:: 18 - 8 group members Time Started:: 09:05 Time Stopped:: 10:00 Targeted Problem #:: 1 Type of Group:: Process Goal of Group:: The goal of today's group was to check-in on client's mood, stressors, and functioning. Client Response/Progress/Benefit:: Client responded well to session, quiet, but participating when prompted by therapist. Client reports feeling tired and sore today as she is sick. However, client stated she feels bittersweet about her daughter starting preschool and today being her last day in IOP. Client shared at the beginning of the program she did not want to open up or look at anyone but by the end client was engaging and utilizing healthy coping skills. Client appeared to benefit from reflecting on her progress throughout IOP as well as gaining supportive statements from others. Eye Contact:: Fair Motor Activity:: Appropriate Appearance:: Neat Speech:: Appropriate Mood:: Anxious, Irritable Affect:: Constricted Thoughts:: Linear, No evidence of hallucinations/delusions noted Staff Interventions:: Therapist facilitated the group session by asking open ended questions that encouraged group members to discuss their coping skills, stressors, barriers, and current mood state
--- NOTE | 2017-07-17 14:49 | BH.SGPN_ITS ---
Service Group Progress Note - Session Psychotherapy Session #1 Date Open:: 18 - 8 group members Time Started:: 09:05 Time Stopped:: 10:00 Targeted Problem #:: 1 Type of Group:: Process Goal of Group:: The goal of today's group was to check-in on client's mood, stressors, and functioning. Client Response/Progress/Benefit:: Client responded well to session, quiet, but participating when prompted by therapist. Client reports feeling ?tired and sore ? today as she is sick. However, client stated she feels ?bittersweet? about her daughter starting preschool and today being her last day in IOP. Client shared at the beginning of the program she did not want to ?open up or look at anyone? but by the end client was engaging and utilizing healthy coping skills. Client appeared to benefit from reflecting on her progress throughout IOP as well as gaining supportive statements from others. Eye Contact:: Fair Motor Activity:: Appropriate Appearance:: Neat Speech:: Appropriate Mood:: Anxious, Irritable Affect:: Constricted Thoughts:: Linear, No evidence of hallucinations/delusions noted Staff Interventions:: Therapist facilitated the group session by asking open ended questions that encouraged group members to discuss their coping skills, stressors, barriers, and current mood state
--- NOTE | 2017-07-17 15:23 | BH.COMM ---
Communication Note - Communication with Client Communication Note: Per client request, this therapist called [facility] to find out earliest available intake dates with an outpatient therapist who could provide services at [place]. Therapist received two potential intake dates 07/24/17 and 07/26/17. Therapist called and left client a message regarding scheduling.
--- NOTE | 2017-07-18 09:10 | BH.COMM ---
Communication Note - Communication with Client Communication Note: This therapist received a call from client regarding follow up with scheduling outpatient counseling. [facility] at 2pm and reported she will contact [facility] today to schedule an intake for outpatient counseling. Client to come to [facility] to meet with therapist on 07/31/17 for a two week follow up.
--- NOTE | 2017-07-18 09:23 | BH.COMM_ITS ---
Communication Note - Communication with Client Communication Note: This therapist received a call from client regarding follow up with scheduling outpatient counseling. Client confirmed [facility] appointment [facility] today at 2pm and reported she will contact [facility] today to schedule an intake for outpatient counseling. Client to come to [facility] to meet with therapist on 07/31/17 for a two week follow up.
--- NOTE | 2017-07-18 09:29 | BH.COMM_ITS ---
Communication Note - Communication with Client Communication Note: Per client request, this therapist called [facility] to find out earliest available intake dates with an outpatient therapist who could provide services at [place]. Therapist received two potential intake dates and 07/26/17. Therapist called and left client a message regarding scheduling.
--- NOTE | 2017-07-24 14:39 | BH.SGPN_ITS ---
Service Group Progress Note - Session Psychotherapy Session #2 Date Open:: 06/26/17 Time Started:: 10:15 Time Stopped:: 11:10 Targeted Problem #:: 1 Type of Group:: Illness Management Goal of Group:: The goal of group was to increase understanding of the benefits social support provides in mental health wellness. Another goal was to increase self-awareness of what qualities the individual group members look for in a person. Eye Contact:: Good Motor Activity:: Appropriate Appearance:: Casual Speech:: Appropriate Mood:: Anxious Affect:: Congruent Thoughts:: Linear, Logical, No evidence of hallucinations/delusions noted Staff Interventions:: Therapist led an experiential activity that demonstrated the need of supports. Processed activity and led discussion about quote. Bryanna rahman led group discussion about importance of social supports. Identified what qualities a positive support person would have. Support was provided through reflective listening and giving feedback. Psychotherapy Session #3 Date Open:: 06/26/17 Time Started:: 11:20 Time Stopped:: 12:20 Targeted Problem #:: 1 Type of Group:: Functional Skills Development Goal of Group:: The goal of group was to increase understanding of the different types of social support. Another goal was to identify one type of support the clients desire and establish one small step towards achieving that support. Eye Contact:: Good Motor Activity:: Appropriate Appearance:: Casual Speech:: Appropriate Mood:: Anxious Affect:: Congruent Thoughts:: Linear, Logical, No evidence of hallucinations/delusions noted Staff Interventions:: Therapist facilitated group discussion on the different types of social support and importance of each type of support. A worksheet titled Plan for Seeking Support was utilized to give clients direction in identifying which type of support they desired and identifying the first small step towards the desired support.
== END 2017-07-17 14:00 | disposition home or self-care (01) ==
LOC: BHIOP 09:00
PROVIDERS: Family Provider Family Medicine; PCP Family Medicine; Visit Provider Psychiatry & Neurology Psychiatry
DX: F32.3 Major depressive disorder, single episode, severe with psychotic features (principal)
CPT/HCPCS: H0035; H2012; H2020; 90832; 90837; 90847

== ENCOUNTER 2019-05-18 09:29 | Day surgery (SDC) | payer MEDICAID, SELFPAY ==
[2019-05-11 17:35] LABS: Hematocrit 35.5 % (37-47); Hemoglobin 10.9 g/dL (12.0-15.0); Mean Corp Hgb Conc 30.7 g/dL (32-36); Mean Corpuscular Hgb 23.6 pg (27.0-32.0); Mean Platelet Vol. 9.6 fl (6.2-12.0); Platelet Count 298 K/mm3 (150-450); RBC Distribution Width CV 14.6 % (11.6-14.6); Red Blood Count 4.61 M/mm3 (4.2-5.4); White Blood Count 6.9 K/mm3 (4.4-11.0)
[2019-05-11 18:01] LABS: Internal QC Validated? YES +Cl - CLEAR BKGD; Pregnancy, Serum, hCG Quali. NEGATIVE Negative
[2019-05-11 18:19] LABS: Prothrombin Time (Protime)PT. 12.9 SECONDS (11.7-14.9)
[2019-05-11 18:24] LABS: Partial Thromboplast Time 29.1 Seconds (24.1-36.2)
--- NOTE | 2019-05-17 22:41 | PCM.HP.BLA ---
History and Physical Date of Admission: 05/18/19 Surgical History and Physical Sandi Conde, a 29 year old female 2 0 0 0 2, presents for L/S bilateral salpingectomy on May 18, 2019 at 11:05. -- Desires Permanent Sterilization -- Sandi presents for permanent sterilization. She has considered this form of control for quite some time. MEDICATIONS HISTORY: Patient is also takin. omeprazole 20 mg capsule,delayed release, One pill by mouth once a day 2. famotidine 40 mg tablet, One pill by mouth twice a day ALLERGIES: NKDA Infections - Chicken pox childhood Illnesses - no serious past illnesses Accidents - no injuries of consequence Hospitalizations - Childbirth Review of Systems: GENERAL - Denies fever, or chills SKIN - Denies skin changes EYES - Denies visual changes EARS - Denies difficulty hearing NOSE - Denies nasal congestion or bleeding MOUTH - Denies sore throat or difficulty swallowing NECK - Denies pain or swelling RESPIRATORY - Denies shortness of breath or wheezing CARDIOVASCULAR - Denies palpitations or chest pain GASTROINTESTINAL - Denies nausea, vomiting, diarrhea, constipation GENITOURINARY - Denies dysuria, frequency of urination, incontinence of urine MUSCULOSKELETAL - Denies joint or muscle pain NEUROLOGICAL - Denies localized numbness or weakness PSYCHIATRIC - Denies depression or anxiety ENDOCRINE - Denies heat or cold intolerance, weight loss or gain HEMATO-IMMUNOLOGIC - Denies excesive bleeding with cuts SOCIAL HISTORY: Alcohol Use - drinks occasionally Smoking - used to smoke but quit Diet - no special diet and caffeine < 2 drinks per day Lifestyle - high stress lifestyle Exercise - minimal Seat Belt Use - always Employer - [employer] 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 Paternal Grandfather: CHF. MENSTRUAL HISTORY: LMP Known?- YesAmount/Duration - 5 days, Regularity - Regular, Frequency - monthly days, LMP - 03/30/19 PAST PREGNANCIES: Total Pregnancies - 2; Full Term Pregnancies - 2; Premature - 0; Abortions, Induced - 0; Abortions, Spontaneous - 0; Ectopics - 0; Multiple Births - 0; Living Children - 2 SURGICAL HISTORY: 1. none PHYSICAL EXAM BP- 130/84 Sitting, Right arm, regular cuff Weight- 162.62944 lbs Height- 65.25 inch BMI:26.81 CONSTITUTIONAL - NAD, well nourished, and well developed SKIN - No rash, lesions, or ulcers HEENT - Normocephalic, PERRLA, EOMI NECK - No nodes, no nuchal rigidity and thyroid normal size and texture LYMPH NODES - Palpation of lymph nodes in neck and groins within normal limits LUNGS - CTA x2 without wheezes, crackles or rales CARDIAC - Regular rate and rhythm without rubs, murmurs, or gallops BREAST - No dominant masses, no tenderness, no axillary adenopathy, no nipple discharge, no skin changes ABDOMEN - Without hepatosplenomegaly, distention, masses, rebound, or guarding; normal bowel sounds; no hernias EXTREMITIES - No edema or calf tenderness NEUROLOGICAL - Cranial nerves II-XII grossly intact PSYCHIATRIC - A and O to time, place, person, mood and affect DETAILED PELVIC EXAM External Genitial Vagina - non-tender without lesions Urethra/Urethral Meatus - non-tender Bladder - non-tender Vagina - vaginal pradhan are pink and moist without loss of rugae and no evidence of atropy Cervix - without cervical motion tenderness and has normal size and features without evident lesions Uterus - multiparous size 6 cm & wt 75-125 g Adnexa - clear without massess or tenderness ASSESSMENT/PLAN: 1. Encounter For Sterilization Discussed options at length including LARC vs tubal in OR. Plan to proceed with L/S Bilateral Salpingectomy. Discussed RBAs and all questions answered.
[2019-05-18 10:06] VITALS: BP 114/71; PULSE 73; RESP 14; TEMP 36.4; O2SAT 100; BMI 27.2
[2019-05-18 10:08] LABS: Internal QC Validated? YES +Cl - CLEAR BKGD; Pregnancy, Urine Negative Negative
[2019-05-18] MEDS: Lactated Ringers 1,000 ML 100 ML IV (10:21)
--- NOTE | 2019-05-18 11:05 | FALS_PTH ---
PATIENT: LEÓN BRADY [place] [facility] [place][id number] AGE/SX: 29/F ROOM: RE05/18/[address]: Dr. Fabian Shabazz MD : [id number] BED: DIS: 05/18/2019 SPEC #: [id number] RECD: 05/18/19 16:13 STATUS: JEREMY PRATIK #: [id number] NIKKI: 05/18/19 11:[address]: Fabian Shabazz DEPT: SURGICAL PATHOLOGY RECD BY: Sammie Frey ENTERED: 05/19/19 10:59 SP TYPE: FALL TUBES OTHR DR: Patit Hernadez PA-C Tissues: Fallopian tube Procedures: Surgery Specimen Level II HEADER OPERATION: Laparoscopic, salpingectomy PRE-OP DIAGNOSIS: Encounter for sterilization TISSUE SUBMITTED: Bilateral fallopian tubes MICROSCOPIC DIAGNOSIS Bilateral fallopian tubes, salpingectomy: Bilateral fallopian tubes including fimbrial ends, no pathologic diagnosis. SJ:karina 05/20/19 MICROSCOPIC DESCRIPTION Slides are reviewed. GROSS DESCRIPTION Received is one container labeled with the patient's name and designated bilateral fallopian tubes. The specimen consists of two fallopian tubes with an average length of 4.5 cm and has an average diameter of 0.5 cm. Both fallopian tubes have normal fimbriated ends. No mass lesions are identified. Ad Writer sections are submitted in two cassettes as follows: 1 - one fallopian tube, 2 - the other fallopian tube. / AM:karina 05/19/19 TC:4 CPT: 50985 x2
[2019-05-18] MEDS: Ropivacaine 0.5% 30 ML Vial (13:28)
--- NOTE | 2019-05-18 13:29 | PCM.OPRPT ---
Report of Operation Date of Procedure: 05/18/19 Pre-Operative Diagnosis: Desires Permanent Sterilization Post-Operative Diagnosis: Desires Permanent Sterilization Surgery/Procedure Performed:: Laparoscopic Bilateral Salpingectomy Description of Surgical Findings:: Normal pelvis Type of Anesthesia:: General - Endotracheal Anesthesiologist: Rigo Yo Specimen's removed: Bilateral fallopian tubes Estimated Blood Loss (mL): Minimal Fluids Replaced: Crystalloid Description of Procedure: Surgeon: Fabian Shabazz MD, FACOG Indications: This is a 29 year old patient who has the above diagnosis. She has considered sterilization for quite some time. She is aware of the permanent nature of the procedure, the failure rate of 1-2%, and the availability of other nonpermanent control options. All questions were answered to consider the patient well-informed. Procedure: The patient was taken to the operating room where after induction of general anesthesia, she was placed in the dorsolithotomy position and prepped and draped in the usual sterile fashion. The bladder was drained of approximately 50 cc of clear yellow urine with a catheter. Anterior cervix was grasped with the tenaculum. Conn cannula was placed and attention was turned toward the laparoscopic portion of the procedure. Approximately 29 cc of half percent ropivacaine was injected subumbilically, suprapubically and midway between. A 5 mm bladeless trocar was placed subumbilically and intraperitoneal placement confirmed. After CO2 insufflation was complete, a 5 mm bladeless trocar was introduced suprapubically. The above findings were noted. A 5 mm blade less trocar was introduced midway between these 2 ports. Each fallopian tube was identified to its fimbriated end and an Enseal device was used to divide the mesosalpinx to the uterus on each side. Fallopian tubes were removed through the 5 mm ports. The peritoneal cavity and upper abdomen were examined and noted to be normal. Photographs were taken. Laparoscopic instruments with as much CO2 gas as possible were removed and incisions were closed with interrupted 4-0 Monocryl suture. Steri-Strips placed across the incision. Vaginal instruments were removed. Patient tolerated procedure well was taken to recovery room in satisfactory condition sponge instrument and needle counts were all reportedly correct. Estimated blood loss for the case was minimal. There were no apparent complications of the surgery. Cefotan 2 g IV was given prior to beginning the operative procedure. Specimens to pathology was bilateral tubes. Grafts/Implants Used: None - Complications None - Admit VTE Documentation VTE Present on Admission: Yes VTE Mechan Device Prophylaxis: SCD's
--- NOTE | 2019-05-18 13:40 | DCINST_ITS ---
Discharge Diet: No Restrictions - Increase fluid intake for the next 48 hours. Discharge Activity: Return to Normal Activity, May Drive - when you are no longer taking pain/narcotic medicines., May Shower, May Take a Tub Bath May resume sexual activity in: 2 weeks Additional Activity Instructions:: Ambulate often the next week after surgery. Nothing in the vagina for 5 days. Call your doctor if your incision/area has: Continuous Slow Oozing, Sudden Increased Bleeding, Increased Pain/ Swelling, Increased Redness, Foul Smelling Discharge Call your doctor if you observe: Fever of 101 or Higher, Inability to urinate, Inability to have a bowel movement, Using more than one pad per hour Allergies/Adverse Reactions: Allergies amoxicillin [From Augmentin] Allergy (Verified 05/11/19 14:06) Nausea/Vom/Diarrhea clavulanic acid [From Augmentin] Allergy (Verified 05/11/19 14:06) Nausea/Vom/Diarrhea Medications to take at Discharge Ergocalciferol [Vitamin D] 1 tab PO QWEEK 06/01/17 Omeprazole 20 mg PO DAILY 06/01/17 Famotidine [Pepcid] 40 mg PO DAILY 05/11/19 Oxycodone [Oxyir] 5 mg PO Q6H PRN PRN 7 Days #10 tablet 05/18/19 The following prescriptions were given: Oxycodone [Oxyir] 5 mg PO Q6H PRN PRN 7 Days #10 tablet PRN Reason: Pain Score 6-10/10 Transmission Status: Received by [id number] Primary Care Physician: Patti Hernadez PA-C [Primary Care Provider] - Test Results: Test results from this visit will be discussed in further detail at your follow- up appointment, if applicable. Please Follow Up With: Fabian Shabazz MD - [phone] When: 2 to 3 weeks
[2019-05-18 13:50] VITALS: BP 106/61; BP 114/71; PULSE 75; RESP 16; TEMP 36.3; O2SAT 95
[2019-05-18 14:01] VITALS: BP 104/65; BP 114/71; PULSE 79; RESP 16; O2SAT 98
[2019-05-18 14:15] VITALS: BP 102/73; BP 114/71; PULSE 72; RESP 16; O2SAT 98
[2019-05-18 14:18] VITALS: BP 114/71; BP 99/69; PULSE 100; RESP 16; TEMP 36.7; O2SAT 99
[2019-05-18 15:07] VITALS: BP 107/64; BP 114/71; PULSE 66; RESP 18; TEMP 36.9; O2SAT 99
== END 2019-05-18 15:12 | disposition home or self-care (01) ==
LOC: SDC 09:30 → AC 09:30
PROVIDERS: Anesthesiology; Family Provider Family Medicine; PCP Family Medicine; Referring Provider Obstetrics & Gynecology; Visit Provider Obstetrics & Gynecology
PROC: (CPT 58661; principal; 2019-05-18 10:50)
DX: Z30.2 Encounter for sterilization (principal); Z87.891 Personal history of nicotine dependence
CPT/HCPCS: 00840; 58661; 36415; 81025; 84703; 85027; 85610; 85730; 86850; 86900; 86901; 88302; J7120; J2405

== ENCOUNTER → 2025-03-26 | Outpatient (CLI) | payer MEDICAID, SELFPAY ==
--- OUTSIDE RECORDS SUMMARY | 2025-03-26 19:28 | XMS RPT_ITS | CCD ---
Author Organization [facility] Care Team Providers Care Program Management Manager Name Role Phone YRN ESPINAL Primary Care Unavailable VERO LOPEZ, THANH Attending Unavailable VERO LOPEZ, THANH Consulting Unavailable VERO LOPEZ, THANH Admitting Unavailable Stedman ERIN, Yrn Ozuna Primary Care Provider Stedman, Yrn Primary Care Unavailable Stedman, Yrn Referring Unavailable [place], Barry Attending Unavailable [facility], Bernardo Attending Unavailable Stedman, Yrn Primary Care Unavailable AMHERST, YRN Admitting Unavailable AMHERST, YRN Attending Unavailable AMHERST, YRN Consulting Unavailable AMHERST, YRN Primary Care Unavailable PROVIDER, UNKNOWN Consulting Unavailable AMHERST, YRN Attending Unavailable AMHERST, YRN Consulting Unavailable AMHERST, YRN Primary Care Unavailable AMHERST, YRN Admitting Unavailable PROVIDER, UNKNOWN Consulting Unavailable AMHERST, YRN Admitting Unavailable AMHERST, YRN Consulting Unavailable AMHERST, YRN Attending Unavailable AMHERST, YRN Primary Care Unavailable PROVIDER, UNKNOWN Consulting Unavailable AMHERST, YRN Attending Unavailable AMHERST, YRN Consulting Unavailable AMHERST, YRN Primary Care Unavailable AMHERST, YRN Admitting Unavailable PROVIDER, UNKNOWN Consulting Unavailable AMHERST, YRN Admitting Unavailable AMHERST, YRN Attending Unavailable AMHERST, YRN Consulting Unavailable AMHERST, YRN Primary Care Unavailable PROVIDER, UNKNOWN Consulting Unavailable SHANE RUBIO MD Admitting Unavailable AMHERST, YRN Referring Unavailable AMHERST, YRN Consulting Unavailable SHANE RUBIO MD Attending Unavailable SHANE RUBIO MD Primary Care Unavailable PROVIDER, UNKNOWN Consulting Unavailable Allergies Allergy Classification Reported Allergen(s) Allergy Type Date of Onset Reaction(s) Facility (1 source) Amoxicillin Drug Allergy 01-14-2025 [facility] Repository (1 source) Clavulanate Drug Allergy 01-14-2025 [facility] Repository (1 source) Penicillins Drug allergy (disorder) 01-14-2025 [facility] Repository Medications Completed/Discontinued Medications Medication Drug Class(es) Dates Sig (Normalized) Sig (Original) 24 hr buPROPion hydrochloride 300 mg extended release oral tablet (3 sources) Aminoketone take 1 tablet by mouth once daily buPROPion XL (WELLBUTRIN XL) 300 mg 24 hr tablet Take 300 mg by mouth once daily. 0 Active Comment on above: Take 300 mg by mouth once daily. citalopram 10 mg oral tablet (3 sources) Serotonin Reuptake Inhibitor take 1 tablet by mouth once daily citalopram hydrobromide (CELEXA) 10 mg tablet citalopram 10 mg tablet TAKE 1 TABLET BY MOUTH ONCE DAILY 0 Active Comment on above: citalopram 10 mg tab let TAKE 1 TABLET BY MOUTH ONCE DAILY ergocalciferol 1.25 mg oral capsule (3 sources) Provitamin D2 Compound Start: 2015 take 1 capsule by mouth once ergocalciferol, vitamin D2, (DRISDOL) 50,000 unit capsule Indications: Vitamin D deficiency Take 1 capsule by mouth every Saturday and . For 8 weeks, then change to over the counter vitamin D3 2000 units daily. 16 capsule 0 2015 Active Comment on above: Take 1 capsule by mo ut every Saturday and . For 8 weeks, then change to over the counter vitamin D3 2000 units daily. famotidine 20 mg oral tablet (3 sources) Histamine-2 Receptor Antagonist Start: 05-31-2019 take 2 tablets by mouth twice daily famotidine (PEPCID) 20 mg tablet Take 40 mg by mouth twice daily. 0 05/31/2019 Active Comment on above: Take 40 mg by mouth twice daily. omeprazole 20 mg delayed release oral capsule (3 sources) Proton Pump Inhibitor take 1 capsule by mouth once daily omeprazole 20 mg capsule Take 20 mg by mouth once daily. 0 Active Comment on above: Take 20 mg by mouth once daily. Problems Active Problems Problem Classification Problem Date Documented Date Episodic/Chronic Allergic reactions (1 source) Allergy status to penicillin; Translations: [Allergy status to penicillin] Onset: 02-04-2025 Episodic Anxiety disorders (3 sources) Anxiety; Translations: [Anxiety disorder, unspecified] Onset: 08-18-2015 08-18-2015 Chronic Esophageal disorders (3 sources) Gastroesophageal reflux disease; Translations: [Gastro-esophageal reflux disease without esophagitis] Onset: 2015 2015 Chronic Genitourinary symptoms and ill-defined conditions (1 source) Increased frequency of urination; Translations: [Frequency of micturition] Episodic Mood disorders (3 sources) Depressive disorder; Translations: [Depression] Onset: 2015 2015 Chronic Nutritional deficiencies (7 sources) Vitamin D deficiency; Translations: [Vitamin D deficiency, unspecified] Onset: 2015 2015 Chronic Other aftercare (1 source) [facility] [place] [facility] therapy; Translations: [Other [place] [facility] [place] [place] therapy] Onset: 02-04-2025 Episodic Other female genital disorders (1 source) Vaginal discharge; Translations: [Other specified noninflammatory disorders of vagina] Episodic Other nervous system disorders (1 source) Other chronic pain; Translations: [Other chronic pain] Onset: 02-04-2025 Chronic Other non-traumatic joint disorders (3 sources) Pain in unspecified joint; Translations: [PAIN IN UNSPECIFIED JOINT] Onset: 03-15-2022 Episodic Spondylosis; intervertebral disc disorders; other back problems (1 source) Dorsalgia, unspecified; Translations: [Dorsalgia, unspecified] Onset: 01-14-2025 Episodic Unclassified (2 sources) Low back pain, unspecified; Translations: [Low back pain, unspecified] Onset: 02-04-2025 Past or Other Problems Problem Classification Problem Date Documented Da te Episodic/Chronic Deficiency and other anemia (2 sources) Anemia, unspecified; Translations: [Anemia, unspecified] Onset: 08-12-2024 Episodic Malaise and fatigue (4 sources) Fatigue; Translations: [Other fatigue] Onset: 2015 2015 Episodic Other disorders of stomach and duodenum (3 sources) Nonulcer dyspepsia; Translations: [Functional dyspepsia] Onset: 08-18-2015 08-18-2015 Episodic Other gastrointestinal disorders (3 sources) Diarrhea; Translations: [Diarrhea, unspecified] Onset: 08-18-2015 08-18-2015 Episodic Other nutritional; endocrine; and metabolic disorders (1 source) Abnormal weight gain; Translations: [Abnormal weight gain] Onset: 10-29-2024 Episodic Unclassified (1 source) Low back pain, unspecified; Translations: [Low back pain, unspecified] Onset: 02-04-2025 Results Test Name Value Interpretation Reference Range Facility MR LUMBAR SP WO CONTRASTon 0 03-02-2025 MR LUMBAR SP WO CONTRAST [address] [address] Patient: LEÓN CONDE Phone#: : 1990 Age: 35 Gender: F Pt. Type: Out Account: [id number] Location: Ordering: [facility] Exam Date: 03/02/2025/15:24 Family Phys: BARRY MCFARLAND Charge Code: [id number] Physician: LORRI VELAZQUEZ [place] Order #: [id number] Dose#: PROCEDURE: MRI LUMBAR SPINE WITHOUT CONTRAST COMPARISON: [facility], MR, LUMBAR SPINE W/O CONT, 01/21/2019, 8:55. INDICATIONS: LOW BACK PAIN TECHNIQUE: A variety of imaging planes and parameters were utilized for visualization of suspected pathology. FINDINGS: PARASPINAL AREA: Normal with no visible mass. BONES: No fracture, pars defect, or osseous lesion. Osseous hemangioma is present at L4. CORD/CAUDA EQUINA: Normal caliber, contour, and signal intensity. LUMBAR DISC LEVELS: L1-L2: No significant disc/facet abnormality, spinal stenosis, or foraminal stenosis. L2-L3: No significant disc/facet abnormality, spinal stenosis, or foraminal stenosis. L3-L4: No significant disc/facet abnormality, spinal stenosis, or foraminal stenosis. L4-L5: No significant disc/facet abnormality, spinal stenosis, or foraminal stenosis. L5-S1: Broad-based bulging is present posteriorly. There is flattening of the anterior aspect of the thecal sac. There is mild hypertrophy at the articular facettes. There is disc degeneration. Type 2 Modic changes are present. There is mild right foraminal narrowing. There is moderate left foraminal narrowing. Left foraminal narrowing has progressed since prior exam. Minimal retrolisthesis is present. CONCLUSION: 1. Disc degeneration is present at L5-S1. There is moderate left foraminal narrowing. There is mild right foraminal narrowing. 2. There is minimal retrolisthesis at L5-S1. 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 Given in the left Given (Toradol) IM 30 mg deltoid. Allergies verified and confirmed 5 rights. Information 09:02/04/2025 (NOW x1) reviewed with patient including reason for taking this medication. - Christopher Montemayor R.N. 09:05 Christopher Montemayor R.N. Scanned MORPHine IM 4 mg 09:02/04 MORPHine IM 4 mg given. Given in the left gluteus Given (NOW x1, HIGH arelis. - 09:06 Christopher Montemayor R.N. 09:01 02/04/2025 ALERT Christopher Montemayor R.N. MEDICATION) Not Scanned Ondansetron 09:02/04 Ondansetron (Zofran) ODT PO 4 mg given. Allergies Given (Zofran) ODT PO 4 verified and confirmed 5 rights. Information reviewed with patient 09:02/04/2025 mg (NOW x1) including reason for taking this medication. - 09:05 Christopher Mccall R.N. REdvinNEdvin Scanned 1 of 1 Normal [facility] ED NURSES CLINICAL NOTEon ED NURSES CLINICAL NOTE Nurse Narrative - LEÓN CONDE, : 1990, , Nurse Clinical Narrative [address] [place] [address] [id number] 02/04/2025 08:09:00 Patient: LEÓN CONDE Sex: Female : 1990 Age: 35y Disposition: Discharge to Home Disposition Decision Time: 09:06 02/04/2025 Departure Time: 09:27 02/04/2025 TRIAGE Historian: (patient). Primary physician (karen espinal). Triage time: 08:07 02/04/2025. Acuity: LEVEL 4. Chief Complaint: Location of symptoms- back (with radiation to the right and left leg) (chronic back pain). ( burning worse today, pain mngt scheduled for 02/15.). 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 SEPSIS SCREEN: NEGATIVE. SIRS criteria negative. -- 08:17 02/04/25 EDT Glenis Feldman R.N. 08:12 02/04/25. BP: 130/69 MAP: 89. HR: 90. RR: 16. O2 saturation: 95% Temperature: 98.1 F. Pain level now 01/31. -- 08:12 02/04/25 EDT Glenis Feldman R.N. Measurements: 08:12 02/04/25 Wt: 81.6 kg, Ht/Mike: 65.0 in, BMI: 29.95 -- 08:12 02/04/25 EDT Glenis Feldman R.N. Medications: omeprazole 10 mg capsule,delayed release -- 08:13 02/04/25 EDT Glenis Feldman R.N. venlafaxine 25 mg tablet -- 08:02/04/25 EDT Glenis Feldman R.N. 1 of 3 Nurse Narrative - LEÓN CONDE, : 1990, , Vitamin D2 1,250 mcg (50,000 unit) capsule -- 08:14 02/04/25 EDT Glenis Feldman R.N. 08:07 02/04/25. Preferred Pharmacy: ([facility]). -- 08:17 02/04/25 EDT Glenis Feldman R.N. Allergies: Penicillins -- 08:13 02/04/25 EDT Glenis Feldman R.N. Problems: no known problem -- 08:15 02/04/25 ELIECERT Glenis Feldman R.N. Surgeries: no known surgical history -- 08:15 02/04/25 ELIECERT Glenis Feldman R.N. History 08:07 02/04/25. SOCIAL HX: Never smoker. The patient has not traveled outside the [place] Infectious disease exposure: No infectious disease exposure. ABUSE ASSESSMENT: Abuse denied. No suspicion of abuse. SELF HARM ASSESSMENT: Self harm assessment was performed. The patient answered no to the question(s) Have you recently felt down, depressed, or hopeless?, Do you have thoughts of harming or killing yourself?, Do you have a plan for harming or killing yourself?, Have you recently had thoughts about harming or killing others?, Do you have any dangerous items in your possession?, Have you noticed less interest or pleasure in doing things?, Are you here because you tried to hurt yourself? and Have you ever tried to hurt yourself before today?. FALL RISK ASSESSMENT: Fall risk assessment completed. No risk factors identified. -- 08:17 02/04/25 EDT Glenis Feldman R.N. Interventions 08:02/04/25. Advanced care plan. Patient does not have advanced directive. -- 08:02/04/25 ELIECERT Glenis Feldman R.N. 2 of 3 Nurse Narrative - LEÓN CONDE, : 1990, , PHYSICAL ASSESSMENT 08:21 02/04/25. ( MRI done in 2019, budging discs was shown). -- 08:02/04/25 EDT Glenis Feldman R.N. NURSING PROGRESS NOTES 09:02/04/25. MORPHine IM 4 mg given. Given in the left gluteus arelis. -- 09:06 02/04/25 ELIECERT Christopher Montemayor R.N. 09:02/04/25. KetorOLAC (Toradol) IM 30 mg given. Given in the left deltoid. Allergies verified and confirmed 5 rights. Information reviewed with patient including reason for taking this medication. -- 09:05 02/04/25 EDT Christopher Montemayor R.N. 09:01 02/04/25. Ondansetron (Zofran) ODT PO 4 mg given. Allergies verified and confirmed 5 rights. Information reviewed with patient including reason for taking this medication. -- 09:05 02/04/25 EDT Christopher Montemayor R.N. 09:15 02/04/25. Two patient identifiers checked. Call light placed in reach. Side rails up x 1. Bed placed in lowest position. Brakes of bed on. -- 09:15 02/04/25 EDT Christopher Montemayor R.N. DISPOSITION / DISCHARGE Departure time: 09:27 02/04/2025. Condition at departure: improved and stable. No learning barriers present. Discharge instructions provided and reviewed with the patient. Reviewed medication(s) side effects, dosing and course information. Prescription(s) sent electronically to pharmacy. Reviewed referral to family practice for followup (pain management). Patient verbalized understanding. Written instructions provided in Italian. The patient was discharged by the physician. The patient was discharged home and accompanied by parent. The patient left ambulatory and via private vehicle. Parent driving. -- :27 02/04/25 EDT Christopher Montemayor R.N. (Electronically signed by Christopher Montemayor R.N. 02/04/25 09:28:07 EDT) Generated by [facility] 3 of 3 Normal [facility] ED ORDER SHEET (CPOE ONLY)on 02-04-2025 ED ORDER SHEET (CPOE ONLY) Order Sheet - LEÓN CONDE, : 1990, , Order Sheet [address] [address] [id number] 02/04/2025 Patient: LEÓN CONDE Sex: Female : 1990 Age: 35y MEASUREMENTS: Wt: 81.6 kg, Ht/Mike: 65.0 in, BMI: 29.95 ALLERGIES: Penicillins MEDICATION/IV/DRIP/FL UID ORDERS Order Description Priority Entered Acknowledged Completed KetorOLAC (Toradol) IM30 mg 08:52 02/04/2025 08:53 09:05 (NOW x1) Shane Rubio M.D. 02/04/2025 02/04/2025 Christopher Mccall, Mark REdvinN. Reason for ordering with alerts: Benefits outweigh risks --08:52 02/04/2025 Shane Rubio M.D. MORPHine IM4 mg (NOW x1, 08:52 02/04/2025 08:53 09:06 HIGH ALERT MEDICATION) Shane Rubio M.D. 02/04/2025 02/04/2025 Christopher Mccall, Mark REdvinN. Ondansetron (Zofran) ODT PO4 08:52 02/04/2025 08:53 09:05 mg (NOW x1) Shane Rubio M.D. 02/04/2025 02/04/2025 Christopher Mccall R.N. REdvinN. LAB ORDERS Order Description Priority Entered Acknowledged Collected Completed 1 of 2 Order Sheet - LEÓN CONDE, : 1990, , DIAGNOSTIC STUDY ORDERS Order Description Priority Entered Acknowledged Completed STAFF ORDERS Order Description Priority Entered Acknowledged Collected Completed [Electronically signed by Shane Rubio M.D. (02/04/2025 09:06 EDT)] 2 of 2 Normal [facility] ED PHYSICIAN CLINICAL REPORT on 02-04-2025 ED PHYSICIAN CLINICAL REPORT Narrative - LEÓN CONDE, : 1990, , Physician Clinical Narrative [address] [address] [id number] 02/04/2025 08:09:00 Patient: LEÓN CONDE Sex: Female : 1990 Age: 35y Measurements Wt: 81.6 kg, Ht/Mike: 65.0 in, BMI: 29.95 Initial Vital Sign Measured Time BP MAP HR RR O2Sat ETCO2 Temp Pain GCS RTS 08:12 02/04/2025 130/69 89 90 16 95% 98.1 F 8 Time Seen: 08:27 02/04/2025. Arrived- By private vehicle. HISTORY OF PRESENT ILLNESS Chief Complaint: BACK PAIN. It is described as being in the area of the lower lumbar spine. Additional history - patient has had a extensive history of back pain. She has had x-rays. She failed physical therapy. He has had multiple medications. He is referred to pain management and she states that her insurance has been contacted for approval of an MRI but she has not had that done yet. She presents here today because she is having increasing symptoms. She has been using Tylenol and ibuprofen at home without relief. She feels that she is supposed to have some sort of injection at pain management. She was hoping to get an MRI today because she could not get her insurance to approve it. She is not having any bowel or bladder symptoms but her pain is across her low back and does sometimes extend into her thighs. She denies any fever. She denies any nausea or vomiting. REVIEW OF SYSTEMS 1 of 4 Narrative - LEÓN CONDE, : 1990, , : No difficulty with urination, urinary frequency or hematuria. NEUROLOGICAL: No headache. PSYCHIATRIC: No depression. THROAT: No sore throat. RESPIRATORY: No cough or difficulty breathing. GI: No abdominal pain, nausea, vomiting or diarrhea. CONSTITUTIONAL: No fever or chills. PAST HISTORY See nurses notes. no known problem Surgeries: no known surgical history Medications: omeprazole 10 mg capsule,delayed release venlafaxine 25 mg tablet Vitamin D2 1,250 mcg (50,000 unit) capsule Allergies: Penicillins ADDITIONAL NOTES The nursing notes have been reviewed. PHYSICAL EXAM Appearance: Alert. No acute distress. HEENT: Normal external inspection. Eyes: Pupils equal, round and reactive to light. ENT: Ears normal. Neck: Normal inspection. Neck nontender. CVS: Heart sounds normal. Pulses normal. Respiratory: No respiratory distress. Painless inspiration. Abdomen: No visible injury. Bowel sounds normal. No organomegaly. No mass. Back: Normal inspection. Soft tissue tenderness (Diffuse bilateral lumbar). (slow to stand and walk). Skin: Skin warm. Normal skin color. Extremities: Extremities nontender. 2 of 4 Narrative - LEÓN CONDE, : 1990, , Neuro: Oriented X 3. Mood/affect normal. No motor deficit. No sensory deficit. Straight leg raising: negative on the right and negative on the left. Reflexes normal. PROGRESS AND PROCEDURES MEDICAL DECISION MAKING: (patient presents here with exacerbation of back pain. This is a longstanding chronic issue for her. She does not have any signs of cauda equina or bowel or bladder symptoms. Patient is medicated here for pain he will be discharged with prescriptions. She is continue her follow up with her doctor to pursue pain management for possible injections. Advised that we will not be able to obtain an MRI from the emergency department which was her desire as she really does not have any indications for emergent MRI. Patient is discharged at this time in his to follow up as needed. All questions answered no further concerns.). Disposition: Condition: good. Discharged in good condition. Discharge decision based on the following: patient's condition is stable. CLINICAL IMPRESSION Chronic back pain. DISCHARGE INSTRUCTIONS Apply ice. No strenuous activity. Warnings: GENERAL WARNINGS: Return or contact your physician immediately if your condition worsens or changes unexpectedly, if not improving as expected, or if other problems arise. Prescription Medications: Lidoderm 5 % topical patch: Apply 1 patch to skin once a day for 15 days, dispense 15 patch. Refills 0. [facility] [id number] [place] [address]. methocarbamol 500 mg tablet: 1 tablet by mouth three times a day, dispense 15 tablet. Refills 0. [facility] [id number] [place] [address]. 3 of 4 [facility] - LEÓN CONDE, : 1990, , Naprosyn 500 mg tablet: Take 1 tablet by mouth twice a day for 10 days, dispense 20 tablet. Refills 0. [facility] [id number] [place] [address]. (more content not included)... Normal [facility] ED SUPER BILLon 02-04-2025 ED SUPER BILL [facility] - LEÓN CONDE, : 1990, , [address] [address] [id number] 02/04/2025 Patient: LEÓN CONDE Sex: Female : 1990 Age: 35y Item Facility Professional Category Description Code Code Quantity Fee Total Nurse/E/M EMERGENCY 825361 1 $0.00 $0.00 DEPARTMENT VISIT HIGH/URGENT SEVERITY (80055-57) Nurse/IV/IM/Infusions IM/SQ (01021) 910560 2 $0.00 $0.00 Grand Total $0.00 Providers Shane Rubio M.D. Chief Complaint BACK PAIN. Principal Diagnosis Chronic back pain. 1 of 2 [facility] - LEÓN CONDE, : 1990, , ICD-10 Codes G89.29: Other chronic pain M54.9: Dorsalgia, unspecified 2 of 2 [facility] ED VISIT SUMMARYon ED VISIT SUMMARY Visit Overview - LEÓN CONDE, : 1990, , Visit [address] [address] [id number] 02/04/2025 Patient: LEÓN CONDE Sex: Female : 1990 Age: 35y 02/04/2025 09:28 AM EDT ED Arrival:08:09 02/04/2025 EDT Status: Recent Travel:no Language:eng Adv Directive:No Isolation Status: Ethnicity:N Fall Risk:no risk Infectious Disease Exposure:no Measurements:5'5 / 165.1 Self-Harm Status:no risk Sepsis Screen:negative cm 180.0 lb / 81.6 kg Chief Complaint: back (with radiation to the right and left leg); (burning worse today, pain mngt scheduled for 02/15. ); (chronic back pain ); (karen hills ) ALLERGIES Penicillins HOME MEDICATIONS omeprazole 10 mg capsule,delayed release venlafaxine 25 mg tablet Vitamin D2 1,250 mcg (50,000 unit) capsule 1 of 3 Visit Overview - LEÓN CONDE, : 1990, , PAST MEDICAL HISTORY / PROBLEMS None See nurses notes PAST SURGICAL HISTORY No Surgeries SOCIAL HISTORY Smoking status: No ED COURSE MEDICATIONS GIVEN IN EMERGENCY DEPARTMENT 09:01 02/04/25 MORPHine IM 4 mg 09:01 02/04/25 KetorOLAC (Toradol) IM 30 mg 09:01 02/04/25 Ondansetron (Zofran) ODT PO 4 mg IV SITE INFORMATION INTAKE OUTPUT REASSESMENT (most recent) 08:21 02/04/25. ( MRI done in 2019, budging discs was shown). VITAL SIGNS First Vitals Last Vitals Temp 08:12 02/04/25 98.1 F Temp 08:12 02/04/25 98.1 F BP 08:12 02/04/25 130/69 BP 08:12 02/04/25 130/69 HR 08:12 02/04/25 90 HR 08:12 02/04/25 90 RR 08:12 02/04/25 16 RR 08:12 02/04/25 16 O2 Sat 08:12 02/04/25 95% O2 Sat 08:12 02/04/25 95% Pain 08:12 02/04/25 8 Pain 08:12 02/04/25 8 ETCO2 08:12 02/04/25 ETCO2 08:12 02/04/25 GCS 08:12 02/04/25 GCS 08:12 02/04/25 2 of 3 Visit Overview - LEÓN CONDE, : 1990, , First Vitals Last Vitals RTS 08:12 02/04/25 RTS 08:12 02/04/25 PROCEDURES NURSING INTERVENTIONS LABS / STUDIES CLINICAL IMPRESSION CHRONIC BACK PAIN 3 of 3 Normal [facility] ED VITALS FLOW SHEETon 02-04 ED VITALS FLOW SHEET Vitals - LEÓN CONDE, : 1990, , Vital Sign Flow Sheet [address] [place] [address] [id number] 02/04/2025 Patient: LEÓN CONDE Sex: Female : 1990 Age: 35y Measurements Wt: 81.6 kg, Ht/Mike: 65.0 in, BMI: 29.95 Measured Time BP MAP HR RR O2Sat ETCO2 Temp Pain GCS RTS 08:12 02/04/2025 130/69 89 90 16 95% 98.1 F 8 1 of 1 Normal [facility] L/S Spine Bending Flex/[place] 01-14-2025 L/S Spine Bending Flex/Ext [facility] [address] [place] [address] [id number] L/S Spine Bending Flex/Ext MR#: [id number] Acct: [id number] Name: LEÓN CONDE Rep #: [id number] : 1990 F 35 From: Anatoliy Hill MD PCP: Yrn Espinal PA-C Status: DEP AMB Study: L/S Spine Bending Flex/Ext Date of Exam: 01/14 Exam# [id number] Ordering Dr: Barry Mcfarland MD EXAM: XR Lumbosacral Spine Flexion/Extension Only, 2 or 3 Views CLINICAL INDICATION: BACK PAIN TECHNIQUE: Lateral flexion/extension views of the lumbar spine and sacrum. COMPARISON: No relevant prior studies available. FINDINGS: VERTEBRAE: Multilevel endplate degenerative changes of the visualized spine. Moderate facet arthropathy of L3-S1. No acute fracture. Normal sagittal alignment. No instability. SACRUM/COCCYX: Unremarkable as visualized. No acute fracture. DISC SPACES: No acute findings. No significant narrowing. SOFT TISSUES: Unremarkable. OTHER FINDINGS: No significant dynamic instability. RAD/L/S Spine Bending Flex/Ext IMPRESSION: 1. Degenerative changes as above. 2. No significant dynamic instability. Reading Location: [facility] CC: ERIN Espinal; Dr. Barry Mcfarland MD Container Washer: Signed Normal [facility] Orthopedic Visit Reporton Orthopedic Visit Report [facility] [address] [place] [address] [address] [place] [address] OFFICE VISIT Date of Service: 01/14/25 MR#: [id number] Acct: [id number] Name: LEÓN CONDE Rep #: [id number] : 1990 Provider: Dr. Barry Mcfarland MD Age/Sex: 35/F Location: [facility] Status: Signed Intake Vital Signs 03/06/21 08:55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 By: #### 9 0931 #### [facility], [address] [place], [place] [address] Field Producer: Anselmo Carroll MD #### [id number] #### [facility], [address] [place] [address] Field Producer: Anselmo Carroll MD VITAMIN D,25-OH,TOTAL,IAon 1 08-16-2019 VITAMIN D,25-OH,TOTAL,IA 56 ng/mL Normal 30-100 [facility] Comment on above: Result Comment: Annita min D Status 25-OH Vitamin D: Deficiency: <20 ng/mL Insufficiency: 20 - 29 ng/mL Optimal: > or = 30 ng/mL For 25-OH Vitamin D testing on patients on D2-supplementation and patients for whom quantitation of D2 and D3 fractions is required, the QuestAssureD(TM) 25-OH VIT D, (D2,D3), LC/MS/MS is recommended: order code 48491 (patients >2yrs). See Note 1 Note 1 For additional information, please refer to http://education.Terascore.Algolia/faq/IHW503 (This link is being provided for informational/ educational purposes only.) Performed By: #### 9 0931 #### [facility], [address] [place] [address] Field Producer: Anselmo Carroll MD #### [id number] #### [facility], [address] [place], [place] [address] Field Producer: Anselmo Carroll MD VITAMIN B12on 06-14-2020 Cobalamin (Vitamin B12) [Mass/Vol] 361 pg/mL Normal 200-1100 [facility] Comment on above: Result Comment: Please Note: Although the reference range for vitamin B12 is 200-1100 pg/mL, it has been reported that between 5 and 10% of patients with values between 200 and 400 pg/mL may experience neuropsychiatric and hematologic abnormalities due to occult B12 deficiency; less than 1% of patients with values above 400 pg/mL will have symptoms. Performed By: #### 3 4429, 899, 6421, 6399, 866 #### [facility] [place] [address] Field Producer: Anselmo Carroll MD FOLATE, SERUMon 03-31-2020 Folate [Mass/Vol] 19.1 ng/mL Normal [facility] Comment on above: Result Comment: Refe rence Range Low: <3.4 Borderline: 3.4-5.4 Normal: >5.4 Performed By: #### 4 66 927 #### [facility] [place] [address] Field Producer: Anselmo Carroll MD VITAMIN B12on 03-31-2020 Cobalamin (Vitamin B12) [Mass/Vol] 345 pg/mL Normal 200-1100 [facility] Comment on above: Result Comment: Please Note: Although the reference range for vitamin B12 is 200-1100 pg/mL, it has been reported that between 5 and 10% of patients with values between 200 and 400 pg/mL may experience neuropsychiatric and hematologic abnormalities due to occult B12 deficiency; less than 1% of patients with values above 400 pg/mL will have symptoms. Performed By: #### 4 66, 197 #### [facility] Field Producer: Anselmo Carroll MD CBC (INCLUDES DIFF/PLT)on Basophils (Bld) [#/Vol] 0.02 10*3/uL Normal 0-200 [facility] Comment on above: Performed By: #### 9 0931 #### [facility] [address] Field Producer: Anselmo Carroll MD #### [id number] #### [facility] [address] Field Producer: Anselmo Carroll MD Basophils/100 WBC (Bld) 0.4 % Normal [facility] Comment on above: Performed By: #### 9 0931 #### [facility] [address] Field Producer: Anselmo Carroll MD #### [id number] #### [facility] [address] Field Producer: Anselmo Carroll MD Eosinophils (Bld) [#/Vol] 0.08 10*3/uL Normal 15-500 [facility] Comment on above: Performed By: #### 9 0931 #### [facility] [address] Field Producer: Anselmo Carroll MD #### [id number] #### [facility] [address] Field Producer: Anselmo Carroll MD Eosinophils/100 WBC (Bld) 1.6 % Normal [facility] Comment on above: Performed By: #### 9 0931 #### [facility] [address] Field Producer: Anselmo Carroll MD #### [id number] #### [facility] [address] Field Producer: Anselmo Carroll MD Erythrocyte distribution width (RBC) [Ratio] 22.4 % High 11.0-15.0 [facility] Comment on above: Performed By: #### 9 0931 #### [facility] [address] Field Producer: Anselmo Carroll MD #### [id number] #### [facility] [address] Field Producer: Anselmo Carroll MD Hematocrit (Bld) [Volume fraction] 40.8 % Normal 35.0-45.0 [facility] Comment on above: Performed By: #### 9 0931 #### [facility] [address] Field Producer: Anselmo Carroll MD #### [id number] #### [facility] [address] Field Producer: Anselmo Carroll MD Hemoglobin (Bld) [Mass/Vol] 12.5 g/dL Normal 11.7-15.5 [facility] Comment on above: Performed By: #### 9 0931 #### [facility] [address] Field Producer: Anselmo Carroll MD #### [id number] #### [facility] [address] Field Producer: Anselmo Carroll MD Lymphocytes (Bld) [#/Vol] 1.24 10*3/uL Normal 850-3900 [facility] Comment on above: Performed By: #### 9 0931 #### [facility] [address] Field Producer: Anselmo Carroll MD #### [id number] #### [facility] [address] Field Producer: Anselmo Carroll MD Lymphocytes/100 WBC (Bld) 24.8 % Normal [facility] Comment on above: Performed By: #### 9 0931 #### [facility] [address] Field Producer: Anselmo Carroll MD #### [id number] #### [facility] [address] Field Producer: Anselmo Carroll MD MCH (RBC) [Entitic mass] 24.1 pg Low 27.0-33.0 [facility] Comment on above: Performed By: #### 9 0931 #### [facility] [address] Field Producer: Anselmo Carroll MD #### [id number] #### [facility] [address] Field Producer: Anselmo Carroll MD MCHC (RBC) [Mass/Vol] 30.6 g/dL Low 32.0-36.0 [facility] Comment on above: Performed By: #### 9 0931 #### [facility] [address] Field Producer: Anselmo Carroll MD #### [id number] #### [facility] [address] Field Producer: Anselmo Carroll MD MCV (RBC) [Entitic vol] 78.8 fL Low 80.0-100.0 [facility] Comment on above: Performed By: #### 9 0931 #### [facility] [address] Field Producer: Anselmo Carroll MD #### [id number] #### [facility] [address] Field Producer: Anselmo Carroll MD Monocytes (Bld) [#/Vol] 0.43 10*3/uL Normal 200-950 [facility] Comment on above: Performed By: #### 9 0931 #### [facility] [address] Field Producer: Anselmo Carroll MD #### [id number] #### [facility] [address] Field Producer: Anselmo Carroll MD Monocytes/100 WBC (Bld) 8.6 % Normal [facility] Comment on above: Performed By: #### 9 0931 #### [facility] [address] Field Producer: Anselmo Carroll MD #### [id number] #### [facility], [address] [place], [place] [address] Field Producer: Anselmo Carroll MD Neutrophils (Bld) [#/Vol] 3.23 10*3/uL Normal 4036-9638 [facility] Comment on above: Performed By: #### 9 0931 #### [facility], [address] [place] [address] Field Producer: Anselmo Carroll MD #### [id number] #### [facility], [address] [place] [address] Field Producer: Anselmo Carroll MD Neutrophils/100 WBC (Bld) 64.6 % Normal [facility] Comment on above: Performed By: #### 9 0931 #### [facility], [address] [place] [address] Field Producer: Anselmo Carroll MD #### [id number] #### [facility], [address] [place] [address] Field Producer: Anselmo Carroll MD Platelet mean volume (Bld) [Entitic vol] 10.0 fL Normal 7.5-12.5 [facility] Comment on above: Performed By: #### 9 0931 #### [facility], [address] [place], [place] [id number] Field Producer: Anselmo Carroll MD #### [id number] #### [facility], [address] [place], [place] [address] Field Producer: Anselmo Carroll MD Platelets (Bld) [#/Vol] 298 10*3/uL Normal 140-400 [facility] Comment on above: Performed By: #### 9 0931 #### [facility], [address] [place], [place] [id number] Field Producer: Anselmo Carroll MD #### [id number] #### [facility], [address] [place] [address] Field Producer: Anselmo Carroll MD RBC (Bld) [#/Vol] 5.18 10*6/uL High 3.80-5.10 [facility] Comment on above: Performed By: #### 9 0931 #### [facility], [address] [place] [address] Field Producer: Anselmo Carroll MD #### [id number] #### [facility] [address] Field Producer: Anselmo Carroll MD WBC (Bld) [#/Vol] 5.0 10*3/uL Normal 3.8-10.8 [facility] Comment on above: Performed By: #### 9 0931 #### [facility], [address] [place] [address] Field Producer: Anselmo Carroll MD #### [id number] #### [facility] [address] Field Producer: Anselmo Carroll MD CBC MORPHOLOGYon 03-29-2020 CBC MORPHOLOGY Normal NORMAL [facility] Comment on above: Result Comment: Anis ocytosis 2 + Hypochromasia 1 + Ovalocytes 1 + Performed By: #### 9 0931 #### [facility] [address] Field Producer: Anselmo Carroll MD #### [id number] #### [facility] [address] Field Producer: Anselmo Carroll MD COMPREHENSIVE METABOLIC PANE [facility] 03-29-2020 Albumin [Mass/Vol] 4.4 g/dL Normal 3.6-5.1 [facility] Comment on above: Performed By: #### 9 0931 #### [facility] [address] Field Producer: Anselmo Carroll MD #### [id number] #### [facility] [address] Field Producer: Anselmo Carroll MD Albumin/Globulin [Mass ratio] 2.0 (calc) Normal 1.0-2.5 [facility] Comment on above: Performed By: #### 9 0931 #### [facility] [address] Field Producer: Anselmo Carroll MD #### [id number] #### [facility] [address] Field Producer: Anselmo Carroll MD ALP [Catalytic activity/Vol] 46 U/L Normal 31-125 [facility] Comment on above: Performed By: #### 9 0931 #### [facility] [address] Field Producer: Anselmo Carroll MD #### [id number] #### [facility] [address] Field Producer: Anselmo Carroll MD ALT [Catalytic activity/Vol] 12 U/L Normal 6-29 [facility] Comment on above: Performed By: #### 9 0931 #### [facility] [address] Field Producer: Anselmo Carroll MD #### [id number] #### [facility] [address] Field Producer: Anselmo Carroll MD AST [Catalytic activity/Vol] 14 U/L Normal 10-30 [facility] Comment on above: Performed By: #### 9 0931 #### [facility] [address] Field Producer: Anselmo Carroll MD #### [id number] #### [facility] [address] Field Producer: Anselmo Carroll MD Bilirubin [Mass/Vol] 0.6 mg/dL Normal 0.2-1.2 [facility] Comment on above: Performed By: #### 9 0931 #### [facility] [address] Field Producer: Anselmo Carroll MD #### 76395 #### [facility] [address] Field Producer: Anselmo Carroll MD Calcium [Mass/Vol] 9.0 mg/dL Normal 8.6-10.2 [facility] Comment on above: Performed By: #### 9 0931 #### [facility] [address] Field Producer: Anselmo Carroll MD #### [id number] #### [facility] [address] Field Producer: Anselmo Carroll MD Chloride [Moles/Vol] 105 mmol/L Normal 98-110 [facility] Comment on above: Performed By: #### 9 0931 #### [facility] [address] Field Producer: Anselmo Carroll MD #### 98500 #### [facility] [address] Field Producer: Anselmo Carroll MD CO2 [Moles/Vol] 27 mmol/L Normal 20-32 [facility] Comment on above: Performed By: #### 9 0931 #### [facility] [address] Field Producer: Anselmo aCrroll MD #### 19526 #### [facility], [address] [place] [address] Field Producer: Anselmo Carroll MD Creatinine [Mass/Vol] 0.64 mg/dL Normal 0.50-1.10 [facility] Comment on above: Performed By: #### 9 0931 #### [facility] [address] Field Producer: Anselmo Carroll MD #### [id number] #### [facility] [address] Field Producer: Anselmo Carroll MD eGFR NON-AFR. PANAMANIAN 118 mL/min/1.73m2 Normal > OR = 60 [facility] Comment on above: Performed By: #### 9 0931 #### [facility] [address] Field Producer: Anselmo Carroll MD #### [id number] #### [facility], [address] [place] [address] Field Producer: Anselmo Carroll MD GFR/1.73 sq M predicted among blacks MDRD (S/P/Bld) [Vol rate/Area] 137 mL/min/{1.73_m2} Normal > OR = 60 [facility] Comment on above: Performed By: #### 9 0931 #### [facility], [address] [place] [address] Field Producer: Anselmo Carroll MD #### [id number] #### [facility] [address] Field Producer: Anselmo Carroll MD Globulin (S) [Mass/Vol] 2.2 g/dL (calc) Normal 1.9-3.7 [facility] Comment on above: Performed By: #### 9 0931 #### [facility], [address] [place] [address] Field Producer: Anselmo Carroll MD #### [id number] #### [facility] [address] Field Producer: Anselmo Carroll MD Glucose [Mass/Vol] 89 mg/dL Normal 65-99 [facility] Comment on above: Result Comment: Fasting reference interval Performed By: #### 9 0931 #### [facility], [address] [place] [address] Field Producer: Anselmo Carroll MD #### [id number] #### [facility] [address] Field Producer: Anselmo Carroll MD Potassium [Moles/Vol] 4.0 mmol/L Normal 3.5-5.3 [facility] Comment on above: Performed By: #### 9 0931 #### [facility] [address] Field Producer: Anselmo Carroll MD #### [id number] #### [facility] [address] Field Producer: Anselmo Carroll MD Protein [Mass/Vol] 6.6 g/dL Normal 6.1-8.1 [facility] Comment on above: Performed By: #### 9 0931 #### [facility] [address] Field Producer: Anselmo Carroll MD #### [id number] #### [facility] [address] Field Producer: Anselmo Carroll MD Sodium [Moles/Vol] 140 mmol/L Normal 135-146 [facility] Comment on above: Performed By: #### 9 0931 #### [facility] [address] Field Producer: Anselmo Carroll MD #### [id number] #### [facility] [address] Field Producer: Anselmo Carroll MD Urea nitrogen [Mass/Vol] 10 mg/dL Normal 7-25 [facility] Comment on above: Performed By: #### 9 0931 #### [facility] [address] Field Producer: Anselmo Carroll MD #### [id number] #### [facility], [address] [place] [address] Field Producer: Anselmo Carroll MD Urea nitrogen/Creatinine [Mass ratio] NOT APPLICABLE Normal 6-22 [facility] Comment on above: Performed By: #### 9 0931 #### [facility] [address] Field Producer: Anselmo Carroll MD #### [id number] #### [facility] Field Producer: Anselmo Carroll MD IRON, TIBC AND FERRITIN PANE [facility] 03-29-2020 % SATURATION 18 % (calc) Normal 16-45 [facility] Comment on above: Performed By: #### 9 0931 #### [facility] [address] Field Producer: Anselmo Carroll MD #### 53414 #### [facility] [address] Field Producer: Anselmo Carroll MD Ferritin [Mass/Vol] 13 ng/mL Low 16-154 [facility] Comment on above: Performed By: #### 9 0931 #### [facility] [address] Field Producer: Anselmo Carroll MD #### [id number] #### [facility] [address] Field Producer: Anselmo Carroll MD IRON BINDING CAPACITY 368 mcg/dL (calc) Normal 250-450 [facility] Comment on above: Performed By: #### 9 0931 #### [facility] Field Producer: Anselmo aCrroll MD #### 87814 #### [facility] [address] Field Producer: Anselmo Carroll MD IRON, TOTAL 65 mcg/dL Normal 40-190 [facility] Comment on above: Performed By: #### 9 0931 #### [facility] [address] Field Producer: Anselmo Carroll MD #### [id number] #### [facility], [address] [place] [address] Field Producer: Anselmo Carroll MD LIPID PANEL, [facility] 10-0 Cholesterol [Mass/Vol] 183 mg/dL Normal <200 [facility] Comment on above: Performed By: #### 9 0931 #### [facility], [address] [place] [address] Field Producer: Anselmo Carroll MD #### [id number] #### [facility], [address] [place] [address] Field Producer: Anselmo Carroll MD Cholesterol in HDL [Mass/Vol] 44 mg/dL Low > OR = 50 [facility] Comment on above: Performed By: #### 9 0931 #### [facility], [address] [place] [address] Field Producer: Anselmo Carroll MD #### [id number] #### [facility], [address] [place] [address] Field Producer: Anselmo Carroll MD Cholesterol in LDL [Mass/Vol] 115 mg/dL (calc) High [facility] Comment on above: Result Comment: Refe rence range: <100 Desirable range <100 mg/dL for primary prevention; <70 mg/dL for patients with CHD or diabetic patients with > or = 2 CHD risk factors. LDL-C is now calculated using the Edita calculation, which is a validated novel method providing better accuracy than the Friedewald equation in the estimation of LDL-C. Khanh COLVIN et al. TONY. 2013;310(19): 6774-6719 (http://education.Terascore.Algolia/faq/XNX703) Performed By: #### 9 0931 #### [facility], [address] [place] [address] Field Producer: Anselmo Carroll MD #### [id number] #### [facility], [address] [place] [address] Field Producer: Anselmo Carroll MD Cholesterol.total/C holesterol in HDL [Mass ratio] 4.2 (calc) Normal <5.0 [facility] Comment on above: Performed By: #### 9 0931 #### [facility], [address] [place] [address] Field Producer: Anselmo Carroll MD #### [id number] #### [facility], [address] [place] [address] Field Producer: Anselmo Carroll MD NON HDL CHOLESTEROL 139 mg/dL (calc) High <130 [facility] Comment on above: Result Comment: For patients with diabetes plus 1 major ASCVD risk factor, treating to a non-HDL-C goal of <100 mg/dL (LDL-C of <70 mg/dL) is considered a therapeutic option. Performed By: #### 9 0931 #### [facility], [address] [place] [address] Field Producer: Anselmo Carroll MD #### [id number] #### [facility], [address] [place] [address] Field Producer: Anselmo Carroll MD Triglyceride [Mass/Vol] 125 mg/dL Normal <150 [facility] Comment on above: Performed By: #### 9 0931 #### [facility], [address] [place] [address] Field Producer: Anselmo Carroll MD #### [id number] #### [facility], [address] [place] [address] Field Producer: Anselmo Carroll MD [facility] METABOLIC PANE [facility] 03-06-2020 Albumin [Mass/Vol] 4.5 g/dL Normal 3.6-5.1 [facility] Comment on above: Performed By: #### 9 0931 #### [facility], [address] [place] [address] Field Producer: Anselmo Carroll MD #### [id number] #### [facility], [address] [place] [address] Field Producer: Anselmo Carroll MD Albumin/Globulin [Mass ratio] 2.0 (calc) Normal 1.0-2.5 [facility] Comment on above: Performed By: #### 9 0931 #### [facility], [address] [place] [address] Field Producer: Anselmo Carroll MD #### [id number] #### [facility], [address] [place] [address] Field Producer: Anselmo Carroll MD ALP [Catalytic activity/Vol] 48 U/L Normal 31-125 [facility] Comment on above: Performed By: #### 9 0931 #### [facility], [address] [place] [address] Field Producer: Anselmo Carroll MD #### [id number] #### [facility], [address] [place] [address] Field Producer: Anselmo Carroll MD ALT [Catalytic activity/Vol] 14 U/L Normal 6-29 [facility] Comment on above: Performed By: #### 9 0931 #### [facility] [address] Field Producer: Anselmo Carroll MD #### [id number] #### [facility] [address] Field Producer: Anselmo Carroll MD AST [Catalytic activity/Vol] 15 U/L Normal 10-30 [facility] Comment on above: Performed By: #### 9 0931 #### [facility], [address] [place] [address] Field Producer: Anselmo Carroll MD #### [id number] #### [facility], [address] [place] [address] Field Producer: Anselmo Carroll MD Bilirubin [Mass/Vol] 0.2 mg/dL Normal 0.2-1.2 [facility] Comment on above: Performed By: #### 9 0931 #### [facility] [address] Field Producer: Anselmo Carroll MD #### [id number] #### [facility] [address] Field Producer: Anselmo Carroll MD Calcium [Mass/Vol] 9.2 mg/dL Normal 8.6-10.2 [facility] Comment on above: Performed By: #### 9 0931 #### [facility] [address] Field Producer: Anselmo Carroll MD #### [id number] #### [facility] [address] Field Producer: Anselmo Carroll MD Chloride [Moles/Vol] 107 mmol/L Normal 98-110 [facility] Comment on above: Performed By: #### 9 0931 #### [facility] [address] Field Producer: Anselmo Carroll MD #### [id number] #### [facility] [address] Field Producer: Anselmo Carroll MD CO2 [Moles/Vol] 25 mmol/L Normal 20-32 [facility] Comment on above: Performed By: #### 9 0931 #### [facility] [address] Field Producer: Anselmo Carroll MD #### [id number] #### [facility] [address] Field Producer: Anselmo Carroll MD Creatinine [Mass/Vol] 0.77 mg/dL Normal 0.50-1.10 [facility] Comment on above: Performed By: #### 9 0931 #### [facility], [address] [place] [address] Field Producer: Anselmo Carroll MD #### [id number] #### [facility] [address] Field Producer: Anselmo Carroll MD eGFR NON-AFR. PANAMANIAN 102 mL/min/1.73m2 Normal > OR = 60 [facility] Comment on above: Performed By: #### 9 0931 #### [facility], [address] [place] [address] Field Producer: Anselmo Carroll MD #### [id number] #### [facility] [address] Field Producer: Anselmo Carroll MD GFR/1.73 sq M predicted among blacks MDRD (S/P/Bld) [Vol rate/Area] 118 mL/min/{1.73_m2} Normal > OR = 60 [facility] Comment on above: Performed By: #### 9 0931 #### [facility], [address] [place] [address] Field Producer: Anselmo Carroll MD #### [id number] #### [facility] [address] Field Producer: Anselmo Carroll MD Globulin (S) [Mass/Vol] 2.3 g/dL (calc) Normal 1.9-3.7 [facility] Comment on above: Performed By: #### 9 0931 #### [facility] [address] Field Producer: Anselmo Carroll MD #### [id number] #### [facility] [address] Field Producer: Anselmo Carroll MD Glucose [Mass/Vol] 106 mg/dL High 65-99 [facility] Comment on above: Result Comment: Fasting reference interval For someone without known diabetes, a glucose value between 100 and 125 mg/dL is consistent with prediabetes and should be confirmed with a follow-up test. Performed By: #### 9 0931 #### [facility], [address] [place] [address] Field Producer: Anselmo Carroll MD #### [id number] #### [facility], [address] [place] [address] Field Producer: Anselmo Carroll MD Potassium [Moles/Vol] 3.9 mmol/L Normal 3.5-5.3 [facility] Comment on above: Performed By: #### 9 0931 #### [facility], [address] [place] [address] Field Producer: Anselmo Carroll MD #### [id number] #### [facility], [address] [place] [address] Field Producer: Anselmo Carroll MD Protein [Mass/Vol] 6.8 g/dL Normal 6.1-8.1 [facility] Comment on above: Performed By: #### 9 0931 #### [facility], [address] [place] [address] Field Producer: Anselmo Carroll MD #### [id number] #### [facility] [address] Field Producer: Anselmo Carroll MD Sodium [Moles/Vol] 139 mmol/L Normal 135-146 [facility] Comment on above: Performed By: #### 9 0931 #### [facility], [address] [place] [address] Field Producer: Anselmo Carroll MD #### [id number] #### [facility], [address] [place] [address] Field Producer: Anselmo Carroll MD Urea nitrogen [Mass/Vol] 9 mg/dL Normal 7-25 [facility] Comment on above: Performed By: #### 9 0931 #### [facility], [address] [place] [address] Field Producer: Anselmo Carroll MD #### [id number] #### [facility] [address] Field Producer: Anselmo Carroll MD Urea nitrogen/Creatinine [Mass ratio] NOT APPLICABLE Normal 6-22 [facility] Comment on above: Performed By: #### 9 0931 #### [facility] [address] Field Producer: Anselmo Carroll MD #### [id number] #### [facility] [address] Field Producer: Anselmo Carroll MD CBC (INCLUDES DIFF/PLT)on Basophils (Bld) [#/Vol] 0.018 10*3/uL Normal 0-200 [facility] Comment on above: Performed By: #### 3 4429, 899, 6421, 6399, 866 #### [facility] [address] Field Producer: Anselmo Carroll MD Basophils/100 WBC (Bld) 0.4 % Normal [facility] Comment on above: Performed By: #### 3 4429, 899, 6421, 6399, 866 #### [facility] [address] Field Producer: Anselmo Carroll MD Eosinophils (Bld) [#/Vol] 0.06 10*3/uL Normal 15-500 [facility] Comment on above: Performed By: #### 3 4429, 899, 6421, 6399, 866 #### [facility] [address] Field Producer: Anselmo Carroll MD Eosinophils/100 WBC (Bld) 1.3 % Normal [facility] Comment on above: Performed By: #### 3 4429, 899, 6421, 6399, 866 #### [facility], [address] [place] [address] Field Producer: Anselmo Carroll MD Erythrocyte distribution width (RBC) [Ratio] 15.3 % High 11.0-15.0 [facility] Comment on above: Performed By: #### 3 4429, 899, 6421, 6399, 866 #### [facility] [address], [address] [place] [address] Field Producer: Anselmo Carroll MD Hematocrit (Bld) [Volume fraction] 30.4 % Low 35.0-45.0 [facility] Comment on above: Performed By: #### 3 4429, 899, 6421, 6399, 866 #### [facility] [address], [address] [place] [address] Field Producer: Anselmo Carroll MD Hemoglobin (Bld) [Mass/Vol] 9.4 g/dL Low 11.7-15.5 [facility] Comment on above: Performed By: #### 3 4429, 899, 6421, 6399, 866 #### [facility] [address], [address] [place] [address] Field Producer: Anselmo Carroll MD Lymphocytes (Bld) [#/Vol] 1.504 10*3/uL Normal 850-3900 [facility] Comment on above: Performed By: #### 3 4429, 899, 6421, 6399, 866 #### [facility] [address], [address] [place] [address] Field Producer: Anselmo Carroll MD Lymphocytes/100 WBC (Bld) 32.7 % Normal [facility] Comment on above: Performed By: #### 3 4429, 899, 6421, 6399, 866 #### [facility] [address], [address] [place] [address] Field Producer: Anselmo Carroll MD MCH (RBC) [Entitic mass] 21.4 pg Low 27.0-33.0 [facility] Comment on above: Performed By: #### 3 4429, 899, 6421, 6399, 866 #### [facility] [address], [address] [place] [address] Field Producer: Anselmo Carroll MD MCHC (RBC) [Mass/Vol] 30.9 g/dL Low 32.0-36.0 [facility] Comment on above: Performed By: #### 3 4429, 899, 6421, 6399, 866 #### [facility] [address], [address] [place] [address] Field Producer: Anselmo Carroll MD MCV (RBC) [Entitic vol] 69.2 fL Low 80.0-100.0 [facility] Comment on above: Performed By: #### 3 4429, 899, 6421, 6399, 866 #### [facility] [address], [address] [place] [address] Field Producer: Anselmo Carroll MD Monocytes (Bld) [#/Vol] 0.414 10*3/uL Normal 200-950 [facility] Comment on above: Performed By: #### 3 4429, 899, 6421, 6399, 866 #### [facility] [address], [address] [place] [address] Field Producer: Anselmo Carroll MD Monocytes/100 WBC (Bld) 9.0 % Normal [facility] Comment on above: Performed By: #### 3 4429, 899, 6421, 6399, 866 #### [facility] [address], [address] [place] [address] Field Producer: Anselmo Carroll MD Neutrophils (Bld) [#/Vol] 2.604 10*3/uL Normal 7268-1671 [facility] Comment on above: Performed By: #### 3 4429, 899, 6421, 6399, 866 #### [facility] [address], [address] [place] [address] Field Producer: Anselmo Carroll MD Neutrophils/100 WBC (Bld) 56.6 % Normal [facility] Comment on above: Performed By: #### 3 4429, 899, 6421, 6399, 866 #### [facility] [address], [address] [place] [address] Field Producer: Anselmo Carroll MD Platelet mean volume (Bld) [Entitic vol] 9.7 fL Normal 7.5-12.5 [facility] Comment on above: Performed By: #### 3 4429, 899, 6421, 6399, 866 #### [facility] [address] , [address] [place] [address] Field Producer: Anselmo Carroll MD Platelets (Bld) [#/Vol] 305 10*3/uL Normal 140-400 [facility] Comment on above: Performed By: #### 3 4429, 899, 6421, 6399, 866 #### [facility] [address] [address] , [address] [place] [address] Field Producer: Anselmo Carroll MD RBC (Bld) [#/Vol] 4.39 10*6/uL Normal 3.80-5.10 [facility] Comment on above: Performed By: #### 3 4429, 899, 6421, 6399, 866 #### [facility] [address] [address] , [address] [place] [address] Field Producer: Anselmo Carroll MD WBC (Bld) [#/Vol] 4.6 10*3/uL Normal 3.8-10.8 [facility] Comment on above: Performed By: #### 3 4429, 899, 6421, 6399, 866 #### [facility] , [address] [place] [address] Field Producer: Anselmo Carroll MD CBC MORPHOLOGYon 02-23-2020 CBC MORPHOLOGY Normal NORMAL [facility] Comment on above: Result Comment: Micr ocytosis 2 + Hypochromasia 2 + Performed By: #### 3 4429, 899, 6421, 6399, 866 #### [facility] [address] , [address] [place] [address] Field Producer: Anselmo Carroll MD JAIR CALIX VIRUS ANTIBODY PANELon 02-23-2020 EBV NUCLEAR AG (EBNA) AB (IGG) 58.80 U/mL High [facility] Comment on above: Result Comment: U/mL Interpretation ---- <18.00 Negative 18.00-21.99 Equivocal >21.99 Positive Performed By: #### 3 4429, 899, 6421, 6399, 866 #### [facility] [address] Field Producer: Anselmo Carroll MD EBV VIRAL CAPSID AG (VCA) AB (IGG) 234.00 U/mL [facility] Comment on above: Result Comment: U/mL Interpretation ---- <18.00 Negative 18.00-21.99 Equivocal >21.99 Positive Performed By: #### 3 4429, 899, 6421, 2399, 866 #### [facility] [address] Field Producer: Anselmo Carroll MD EBV VIRAL CAPSID AG (VCA) AB (IGM) <36.00 Normal [facility] Comment on above: Result Comment: U/mL Interpretation ---- <36.00 Negative 36.00-43.99 Equivocal >43.99 Positive Performed By: #### 3 4429, 899, 6421, 6399, 866 #### [facility] [address] Field Producer: Anselmo Carroll MD INTERPRETATION: Normal [facility] Comment on above: Result Comment: Suggestive of a past Jair-Calix virus infection. In infants, a similar pattern may occur as a result of passive maternal transfer of antibody. Performed By: #### 3 4429, 899, 6421, 6399, 866 #### [facility] [address] Field Producer: Anselmo Carroll MD T3, FREEon 02-23-2020 Free T3 [Mass/Vol] 3.1 pg/mL Normal 2.3-4.2 [facility] Comment on above: Performed By: #### 3 4429, 899, 6421, 6399, 866 #### [facility], [address] [place] [address] Field Producer: Anselmo Carroll MD T4, FREEon 02-23-2020 Free T4 [Mass/Vol] 1.0 ng/dL Normal 0.8-1.8 [facility] Comment on above: Performed By: #### 3 4429, 899, 6421, 6399, 866 #### [facility], [address] [place] [address] Field Producer: Anselmo Carroll MD TSHon 02-23-2020 TSH Qn 2.70 m[IU]/L Normal [facility] Comment on above: Result Comment: Refe rence Range > or = 20 Years 0.40-4.50 Ranges First trimester 0.26-2.66 Second trimester 0.55-2.73 Third trimester 0.43-2.91 Performed By: #### 3 4429, 899, 6421, 6399, 866 #### [facility], [address] [place] [address] Field Producer: Anselmo Carroll MD BV/VAGINITIS PANEL DNA PROBE on 09-14-2019 ANASTACIA: DETECTED Abnormal NOT DETECTED [facility] Comment on above: Performed By: #### 9 0931 #### [facility] [address] Field Producer: Anselmo Carroll MD #### [id number] #### [facility], [address] [place] [address] Field Producer: Anselmo Carroll MD GARDNERELLA: NOT DETECTED Normal NOT DETECTED [facility] Comment on above: Performed By: #### 9 0931 #### [facility] [address] Field Producer: Anselmo Carroll MD #### [id number] #### [facility], [address] [place] [address] Field Producer: Anselmo Carroll MD TRICHOMONAS: NOT DETECTED Normal NOT DETECTED [facility] Comment on above: Performed By: #### 9 0931 #### [facility], [address] [place], [place] [id number] Field Producer: Anselmo Carroll MD #### [id number] #### [facility], [address] [place], [place] [id number] Field Producer: Anselmo Carroll MD THINPREP PAP AND HPV mRNA E6 /E7on 09-14-2019 CLINICAL INFORMATION: Normal [facility] Comment on above: Result Comment: Rout ine exam Performed By: #### 9 0931 #### [facility], [address] [place], [place] [id number] Field Producer: Anselmo Carroll MD #### [id number] #### [facility], [address] [place] [address] Field Producer: Anselmo Carroll MD COMMENT Normal [facility] Comment on above: Result Comment: EXPL ANATORY NOTE: The Pap is a screening test for cervical cancer. It is not a diagnostic test and is subject to false negative and false positive results. It is most reliable when a satisfactory sample, regularly obtained, is submitted with relevant clinical findings and history, and when the Pap result is evaluated along with historic and current clinical information. Performed By: #### 9 0931 #### [facility], [address] [place], [place] [id number] Field Producer: Anselmo Carroll MD #### [id number] #### [facility], [address] [place] [address] Field Producer: Anselmo Carroll MD MACHINE PAN GREASER: Normal [facility] Comment on above: Result Comment: FLOWER CT(ASCP) CT screening location: [place] [address]. Performed By: #### 9 0931 #### [facility], [address] [place], [place] [id number] Field Producer: Anselmo Carroll MD #### [id number] #### [facility], [address] [place] [address] Field Producer: Anselmo Carroll MD INTERPRETATION/RESU LT: Normal [facility] Comment on above: Result Comment: Nega tive for intraepithelial lesion or malignancy. Performed By: #### 9 0931 #### [facility], [address] [place] [address] Field Producer: Anselmo Carroll MD #### [id number] #### [facility], [address] [place] [address] Field Producer: Anselmo Carroll MD LMP: None given Normal [facility] Comment on above: Performed By: #### 9 0931 #### [facility], [address] [place] [address] Field Producer: Anselmo Carroll MD #### [id number] #### [facility], [address] [place] [address] Field Producer: Anselmo Carroll MD Platelet mean volume (Bld) [Entitic vol] Not Detected Normal Not Detected [facility] Comment on above: Result Comment: This test was performed using the APTIMA HPV Assay ([employer] This assay detects E6/E7 viral messenger RNA (mRNA) from 14 high-risk HPV types (16,18,31,33,35,39,45,51,52,56,58,59,66,68). The analytical performance characteristics of this assay have been determined by [employer]. The modifications have not been cleared or approved by the FDA. This assay has been validated pursuant to the CLIA regulations and is used for clinical purposes. Performed By: #### 9 0931 #### [facility], [address] [place] [address] Field Producer: Anselmo Carroll MD #### [id number] #### [facility], [address] [place] [address] Field Producer: Anselmo Carroll MD PREV. BX: None given Normal [facility] Comment on above: Performed By: #### 9 0931 #### [facility], [address] [place] [address] Field Producer: Anselmo Carroll MD #### [id number] #### [facility], [address] [place] [address] Field Producer: Anselmo Carroll MD PREV. PAP: None given Normal [facility] Comment on above: Performed By: #### 9 0931 #### [facility], [address] [place] [address] Field Producer: Anselmo Carroll MD #### [id number] #### [facility], [address] [place] [address] Field Producer: Anselmo Carroll MD SOURCE: None given Normal [facility] Comment on above: Performed By: #### 9 0931 #### [facility], [address] [place] [address] Field Producer: Anselmo Carroll MD #### [id number] #### [facility], [address] [place] [address] Field Producer: Anselmo Carroll MD STATEMENT OF ADEQUACY: Normal [facility] Comment on above: Result Comment: Sati sfactory for evaluation. Endocervical/transformation zone component present. Performed By: #### 9 0931 #### [facility], [address] [place] [address] Field Producer: Anselmo Carroll MD #### [id number] #### [facility], [address] [place] [address] Field Producer: Anselmo Carroll MD CULTURE, URINE, ROUTINEon CULTURE, URINE, ROUTINE SEE NOTE Normal [facility] Comment on above: Result Comment: CULTURE, URINE, ROUTINE Micro Number: [id number] Test Status: Final Specimen Source: URINE, CLEAN CATCH Specimen Quality: Adequate Result: Multiple organisms present, each less than 10,000 CFU/mL. These organisms, commonly found on external and internal genitalia, are considered to be colonizers. No further testing performed. Performed By: #### 9 0931 #### [facility] [address] [place] [address] Road, [address] [facility] [place] [address] Field Producer: Anselmo Carroll MD #### [id number] #### [facility], [address] [place] [id number] Field Producer: Anselmo Carroll MD Vital Signs Date Time Vital Sign Value Performing Clinician Eloina garcia 08-18-2022 09:14-0500 Body temperature 97.9 [degF] Jesusita Morgan APRN.LCPC Work Phone: [facility] 08-18-2022 09:14-0500 Body weight 79.92 kg Jesusita Morgan APRN.LCPC Work Phone: [facility] 08-18-2022 09:14-0500 Diastolic blood pressure 76 mm[Hg] Jesusita Morgan APRN.LCPC Work Phone: [facility] 08-18-2022 09:14-0500 Heart rate 88 /min Jesusita Morgan APRN.LCPC Work Phone: [facility] 08-18-2022 09:14-0500 Respiratory rate 20 /min Jesusita Morgan APRN.LCPC Work Phone: [facility] 08-18-2022 09:14-0500 SaO2% (BldA) [Mass fraction] 98 % Jesusita Morgan APRN.LCPC Work Phone: [facility] 08-18-2022 09:14-0500 Systolic blood pressure 140 mm[Hg] Jesusita Morgan APRN.LCPC Work Phone: [facility] Encounters Encounter Date Encounter Type Care Provider Facility Start: 03-02-2025 End: 03-02-2025 ambulatory [facility] Start: 03-02-2025 End: 03-02-2025 Encounter for general adult medical examination without abnormal findings [facility] Start: 02-04-2025 End: 02-04-2025 [facility]: 01-14-2025 End: 01-14-2025 ambulatory [facility] Facility[facility] Start: 11-27-2024 End: 01-27-2025 ambulatory [facility] Start: 10-29-2024 End: 10-29-2024 ambulatory [facility] Start: 08-12-2024 End: 08-12-2024 ambulatory [facility] Start: 06-19-2024 End: 06-19-2024 ambulatory [facility] Start: 08-20-2022 Telephone encounter Liliana arzate PA-C Work Phone: [facility] Comment on above: Results Start: 08-19-2022 Telephone encounter Liliana arzate PA-C Work Phone: [facility] Comment on above: Results Start: 08-18-2022 End: 08-18-2022 Patient encounter procedure Jesusita Morgan APRN.LCPC Work Phone: [facility] Comment on above: Urinary frequency (P rimary Dx); Vaginal discharge Start: 03-15-2022 ambulatory [facility] Facili ty:[facility] Procedures Date Procedure Procedure Detail Performing Clinician Start: 08-18-2022 Urnls dip stick/tabl et rgnt auto w/o microscopy Jesusita Morgan APRN.LCPC Work Phone: Plan of Treatment Date Care Activity Detail Author Start: 02-22-2022 Influenza vaccination INFLUENZA (#1) [facility] Start: 04-05-2019 PAP TESTING PAP TESTING [facility] Start: 01-02-2018 HPV TESTING HPV TESTING [facility] Start: 01-02-2007 Urine microalbumin profile DTAP,TDAP,TD (1 - Tdap) [facility] Start: 01-02-2006 HEPATITIS C SCREENING HEPATITIS C SC REENING [facility] Start: 01-02-2006 HIV SCREENING HIV SCREENING [facility] Start: 01-02-1994 PNEUMOCOCCAL (1 - PCV) PNEUMOCOCCAL (1 - PCV) [facility] Start: 1988 COVID-19 VACCINE (#1) COVID-19 VACCI NE (#1) [facility] Start: 1988 HEPATITIS B (1 of 3 - 3-dose series) HEPATITIS B (1 of 3 - 3-dose series) [facility] Bacteria identified in Urine by Culture URINE CULTURE Microbiology Routine Urinary frequency Vaginal discharge Ordered: 08/18/2022 [facility] Work Phone: Comment on above: Ordered: 08/18/2022 BACTERIAL VAGINOSIS AMPLIFICATION BACTERIAL VAGINOSIS AMPLIFICATION Lab Routine Vaginal discharge Ordered: 08/18/2022 [facility] Work Phone: Comment on above: Ordered: 08/18/2022 ANASTACIA / TRICHOMONA S AMPLIFICATION ANASTACIA / TRICHOMONAS AMPLIFICATION Microbiology Routine Vaginal discharge Ordered: 08/18/2022 [facility] Work Phone: Comment on above: Ordered: 08/18/2022 Chlamydia trachomatis+Neisseria gonorrhoeae DNA [Presence] in Unspecified specimen by CHRISTINA with probe detection GC/CHLAMYDIA DNA DET Lab Routine Vaginal discharge Ordered: 08/18/2022 [facility] Work Phone: Comment on above: Ordered: 08/18/2022 Payers Date Payer Category Payer Self-pay 2024 Unknown [id number] 2022 Medicaid [place] [employer] [place] [employer] [id number] 2022-Present [phone] [address] [place] [address] Medicaid [id number] 1988 Unknown [id number] 1988 Unknown [id number] 1988 Unknown [id number] 1988 Unknown [id number] 1988 Unknown [id number] 1988 Unknown [id number] 1988 Unknown [id number] Unknown [id number] Unknown [id number] Social History Date Type Detail Facility Start: 08-18-2022 Tobacco smoking stat [facility] Smokes tobacco daily [facility] History of tobacco use Cigarette Smoker [facility] Start: 08-18-2022 Cigarettes smoked cu rrent (pack per day) - Reported 0.3 [facility] Start: 08-18-2022 Tobacco use and exposure Smoke less tobacco non-user [facility] Start: 08-18-2022 Alcohol intake Current drinke r of alcohol (finding) [facility] Start: 08-02-2015 Alcohol Comment occasional [facility] Start: 1990 Sex Assigned At Not on file C [facility] Note 08-20-2022 Telephone Encounter - Romelia Holguin APRN.CNP - 08/20/2022 11:29 AM ESTTelephone Encounter - Stella Block LPN - 08/20/2022 10:57 AM EST Note Date & Type Note Facility 08-20-2022 Miscellaneous Notes Formattin g of this note might be different from the original. I spoke with patient. I advised her the urine culture did not show any sign of infection. I will fax a work note for her for Saturday, since that was the day she was seen, but if she is still feeling poorly she needs to be re-evaluated. Romelia Holguin APRN.CNP 1)Pt calling for urine culture results. Pt reports not feeling well. Having urgency, discomfort all the time in the lower abdomen. Please review and advise results. Pharmacy update. 2)Pt needs a work excuse for Saturday08-18-22 and today 08-20-22 was not able to go to work. Pt asking if the work excuse could be for the rest of the week since she feels so miserable. 3) Fax work excuse to : [phone] to [employer] Please advise pt. Stella Block LPN documented in this encounter [facility] Note 08-19-2022 Telephone Encounter - Divina Mcgrath MA - 08/19/2022 8:34 AM ESTTelephone Encounter - Liliana Gomez PA-C - 08/19/2022 8:19 AM EST Note Date & Type Note Facility 08-19-2022 Miscellaneous Notes Formattin g of this note might be different from the original. Patient notified of results, verbalized understanding, will call with culture results when they have resulted. Divina Mcgrath MA Let patient know her vaginal swabs were negative. Urine culture is pending. If this is positive we will call. documented in this encounter [facility] History of Present illness Narrative 08-18-2022 Jesusita Morgan APRN.JOSE - 08/18/2022 9:17 AM EST Note Date & Type Note Facility 08-18-2022 History of Presen t illness Narrative CC: Patient presents with: Urinary Problem: Pt reported urinary frequency, burning, x1 wk. HPI León Conde is a 32 year old female who presents with complaint of possible UTI. These symptoms have been present for 7 days. Associated symptoms: frequency and pressure Denies: backpain, fever, sweats, abdominal pain, and flank pain Treatments: nothing The ROS was otherwise negative. PMH, Medications, labs, allergies, and recent past visits with PCP were reviewed and updated as able. PHYSICAL EXAM: BP 140/76 Pulse 88 Temp 36.6 C (97.9 F) (Temporal) Resp 20 Wt 79.9 kg (176 lb 3.2 oz) LMP 08/10/2022 (Exact Date) SpO2 98% BMI 30.24 kg/m General: Well appearing and alert CV: Regular rate and rhythm without obvious murmur Lungs: clear to auscultation bilaterally Back: straight and symmetric Abdomen: soft, nontender, nondistended PAST MEDICAL HISTORY Diagnosis Date Anxiety Back pain Bipolar disorder (HCC) Bulging lumbar disc Depression Diarrhea Heartburn PAST SURGICAL HISTORY Procedure Laterality Date COLONOSCOPY FLX DX W/COLLJ SPEC WHEN PFRMD 09/07/15 Colonoscopy (MAC) ESOPHAGOGASTRODUODENOSCOPY TRANSORAL DIAGNOSTIC 09/07/15 EGD (MAC) ALLERGIES Patient has no known allergies. MEDICATIONS citalopram hydrobromide (CELEXA) 10 mg tablet citalopram 10 mg tablet TAKE 1 TABLET BY MOUTH ONCE DAILY buPROPion XL (WELLBUTRIN XL) 300 mg 24 hr tablet Take 300 mg by mouth once daily. ergocalciferol, vitamin D2, (DRISDOL) 50,000 unit capsule Take 1 capsule by mouth every Saturday and . For 8 weeks, then change to over the counter vitamin D3 2000 units daily. omeprazole 20 mg capsule Take 20 mg by mouth once daily. famotidine (PEPCID) 20 mg tablet Take 40 mg by mouth twice daily. (Patient not taking: Reported on 08/18/2022) FAMILY HISTORY Problem Relation Age of Onset other (healthy [Other]) Father GI Mother IBS Social History Tobacco Use Smoking status: Every Day Packs/day: 0.25 Years: 8.00 Pack years: 2.00 Types: Cigarettes Smokeless tobacco: Never Substance Use Topics Alcohol use: Yes Comment: occasional Drug use: Never ASSESSMENT/PLAN: 1. Urinary frequency - ICD9: 788.41, ICD10: R35.0 (primary diagnosis) - UA DIP, URINE (POC) - URINE CULTURE 2. Vaginal discharge - ICD9: 623.5, ICD10: N89.8 - URINE CULTURE - BACTERIAL VAGINOSIS AMPLIFICATION - ANASTACIA / TRICHOMONAS AMPLIFICATION - GC/CHLAMYDIA DNA DET No treatment at this time. Please treat if anything Is positive. Thank you Potential red flag symptoms discussed with the patient. Reviewed appropriate action plan to take if red flag symptoms occur patient will go to the ER. Patient agreeable to treatment plan. Jesusita Morgan APRN.JOSE documented in this encounter [facility] History of Past illness Narrative 09-07-2015 Note Date & Type Note Facility 09-07-2015 History of Past i llness Narrative Problem Noted Date Resolved Date Dyspepsia 09/07/2015 09/07/2015 Right upper quadrant abdominal pain 09/07/2015 09/07/2015 documented as of this encounter (statuses as of 08/18/2022) [facility] History of Past illness Narrative 09-07-2015 Note Date & Type Note Facility 09-07-2015 History of Past i llness Narrative Problem Noted Date Resolved Date Dyspepsia 09/07/2015 09/07/2015 Right upper quadrant abdominal pain 09/07/2015 09/07/2015 documented as of this encounter (statuses as of 08/19/2022) [facility] History of Past illness Narrative 09-07-2015 Note Date & Type Note Facility 09-07-2015 History of Past i llness Narrative Problem Noted Date Resolved Date Dyspepsia 09/07/2015 09/07/2015 Right upper quadrant abdominal pain 09/07/2015 09/07/2015 documented as of this encounter (statuses as of 08/20/2022) [facility] Evaluation note Note Date & Type Note Facility Evaluation note Diagnosis Urinary frequency- Primary Vaginal discharge Leukorrhea, not specified as infective documented in this encounter [facility] Summary Purpose Family History No Family History Records FoundNo Family History Records FoundNo Family History Records FoundNo Family History Records FoundNo Family History Records Found Advance Directives No Advanced Directives Records FoundNo Advanced Directives Records FoundNo Advanced Directives Records FoundNo Advanced Directives Records FoundNo Advanced Directives Records Found Additional Source Comments INFORMATION SOURCE (unrecogn ized section and content) DATE CREATED AUTHOR 06/15/2020 [facility] DATE CREATED AUTHOR AUTHOR'S ORGANIZ ATION 03/25/2022 [facility] DATE CREATED AUTHOR AUTHOR'S ORGANIZ ATION 11/01/2024 [facility] DATE CREATED AUTHOR AUTHOR'S ORGANIZ ATION 01/16/2025 [facility] DATE CREATED AUTHOR AUTHOR'S ORGANIZ ATION 03/04/2025 [facility] Source Comments (unrecognize d section and content) In the event this informatio n is protected by the Federal Confidentiality of Alcohol and Drug Abuse Patient Records regulations: The Federal rules restrict any use of the information to criminally investigate or prosecute any alcohol or drug abuse patient.[facility] the event this information is protected by the Federal Confidentiality of Alcohol and Drug Abuse Patient Records regulations: The Federal rules restrict any use of the information to criminally investigate or prosecute any alcohol or drug abuse patient.[facility] the event this information is protected by the Federal Confidentiality of Alcohol and Drug Abuse Patient Records regulations: The Federal rules restrict any use of the information to criminally investigate or prosecute any alcohol or drug abuse patient.[facility] Reason for Visit (unrecogniz ed section and content) Reason Comments Urinary Problem Pt reported urinary frequency, burning, x1 wk. Reason Comments Results Care Teams (unrecognized sec tion and content) Program Management Manager Relationship Specialty Start Date End Date Yrn Espinal PA-C PCP - General Family Medicine 12/06/14 Program Management Manager Relationship Specialty Start Date End Date Yrn Espinal PA-C PCP - General Family Medicine 12/06/14 FOR RECORDS PERTAINING TO PATIENTS WHO ARE OR HAVE BEEN ENROLLED IN A CHEMICAL DEPENDENCY/SUBSTANCEABUSE PROGRAM, SOME INFORMATION MAY BE OMITTED. This clinical summary was aggregated from multiple sources. Caution should be exercised in using it in the provision of clinical care. This summary normalizes information from multiple sources, and as a consequence, information in this document may materially change the coding, format and clinical context of patient data. In addition, data may be omitted in some cases. CLINICAL DECISIONS SHOULD BE BASED ON THE PRIMARY CLINICAL RECORDS. [employer] provides no warranty or guarantee of the accuracy or completeness of information in this document.
== END | disposition home or self-care (01) ==
PROVIDERS: PCP Family Medicine; Referring Provider Physician Assistant Surgical; Visit Provider Physician Assistant Surgical
DX: R30.0 Dysuria (principal)
CPT/HCPCS: 87086; 87088